=== PATIENT | female | born 1940 | race Caucasian/White ===

== ENCOUNTER 2020-03-06 09:40 | Observation (INO) | payer MEDICARE, OTHER ==
--- NOTE | 2020-03-06 10:14 | ER Document Report ---
ED Medical Screen (RME) - General Chief Complaint: Leg Swelling Stated Complaint: LEG SWELLING Time Seen by Provider: 03/06/20 10:07 Mode of Arrival: Ambulatory Information source: Patient Notes: 79-year-old female presented to ED for extreme swelling to both legs. With severe pain in the back and legs. 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 She states she does not have a emission specialist patient is not able to hear but can read lips daughter is with her and give give answers. Patient's doctor is in eating but she is living with her daughter at this time. I have greeted and performed a rapid initial assessment of this patient. A comprehensive ED assessment and evaluation of the patient, analysis of test results and completion of medical decision making process will be conducted by an additional ED providers. - Related Data Allergies/Adverse Reactions: codeine Allergy (Verified 03/06/20 10:12) levetiracetam [From Keppra] Allergy (Verified 03/06/20 10:12) phenytoin [From Dilantin] Allergy (Verified 03/06/20 10:12) shellfish derived Allergy (Verified 03/06/20 10:12) Physical Exam - Vital signs Vitals: Temp Pulse Resp BP Pulse Ox 98.5 F 112 H 18 126/63 H 99 03/06/20 10:03 03/06/20 10:03 03/06/20 10:03 03/06/20 10:03 03/06/20 10:03 Course - Vital Signs Vital signs: Temp Pulse Resp BP Pulse Ox 98.5 F 112 H 18 126/63 H 99 03/06/20 10:03 03/06/20 10:03 03/06/20 10:03 03/06/20 10:03 03/06/20 10:03
[2020-03-06 10:53] LABS: ABSOLUTE BASOPHILS # (AUTO) 0.1 10^3/uL (0.0-0.2); ABSOLUTE EOSINOPHILS # (AUTO) 0.2 10^3/uL (0.0-0.6); ABSOLUTE LYMPHOCYTES (AUTO) 1.7 10^3/uL (0.5-4.7); ABSOLUTE MONOCYTES (AUTO) 0.7 10^3/uL (0.1-1.4); ABSOLUTE NEUT (AUTO) 7.1 10^3/uL (1.7-8.2); EOSINOPHILS % (AUTO) 1.7 % (0-6); HEMATOCRIT 41.5 % (36.0-47.0); HEMOGLOBIN 14.5 g/dL (12.0-15.5); LYMPHOCYTES % (AUTO) 17.8 % (13-45); MEAN CORPUSCULAR HEMOGLOBIN 32.6 pg (27.0-33.4); MEAN CORPUSCULAR VOLUME 93 fl (80-97); MONOCYTES % (AUTO) 6.7 % (3-13); PLATELET COUNT 295 10^3/uL (150-450); RED BLOOD COUNT 4.45 10^6/uL (3.72-5.28); RED CELL DISTRIBUTION WIDTH 15.2 % (11.5-14.0); SEGMENTED NEUTROPHILS % (AUTO) 72.8 % (42-78); TOTAL CELLS COUNTED % (AUTO) 100 %; WHITE BLOOD COUNT 9.7 10^3/uL (4.0-10.5)
[2020-03-06 10:57] LABS: APPEARANCE,URINE SLIGHTLY-CLOUDY; BILIRUBIN,URINE NEGATIVE (NEGATIVE); COLOR,URINE YELLOW; GLUCOSE, URINE NEGATIVE (NEGATIVE); KETONES,URINE NEGATIVE (NEGATIVE); LEUKOCYTE ESTERASE,URINE SMALL (NEGATIVE); NITRITE,URINE NEGATIVE (NEGATIVE); PROTEIN,URINE NEGATIVE (NEGATIVE); URINE SPECIFIC GRAVITY 1.013; UROBILINOGEN,URINE NEGATIVE mg/dL (<2.0)
[2020-03-06 11:16] LABS: ALBUMIN 3.8 g/dL (3.5-5.0); ALKALINE PHOSPHATASE 111 U/L (38-126); ANION GAP 9 (5-19); ASPARTATE AMINO TRANSFERASE 23 U/L (14-36); BILIRUBIN,DIRECT 0.3 mg/dL (0.0-0.4); BILIRUBIN,TOTAL 0.6 mg/dL (0.2-1.3); BLOOD UREA NITROGEN 33 mg/dL (7-20); CALCIUM 9.4 mg/dL (8.4-10.2); CARBON DIOXIDE 32 mmol/L (22-30); CHLORIDE 97 mmol/L (98-107); CREATINE KINASE 27 U/L (30-135); GLUCOSE 94 mg/dL (75-110); TOTAL PROTEIN 6.3 g/dL (6.3-8.2)
--- NOTE | 2020-03-06 11:17 | RADIOLOGY REPORT (SQ) ---
EXAM DESCRIPTION: CHEST 2 VIEWS IMAGES COMPLETED DATE/TIME: 03/06/2020 10:54 am REASON FOR STUDY: pedal edema COMPARISON: None. EXAM PARAMETERS: NUMBER OF VIEWS: two views TECHNIQUE: Digital Frontal and Lateral radiographic views of the chest acquired. RADIATION DOSE: NA LIMITATIONS: none FINDINGS: LUNGS AND PLEURA: No opacities, masses or pneumothorax. No pleural effusion. MEDIASTINUM AND HILAR STRUCTURES: No masses or contour abnormalities. HEART AND VASCULAR STRUCTURES: Heart normal size. No evidence for failure. BONES: No acute findings. HARDWARE: No acute findings. Exaggerated thoracic kyphosis with evidence of prior kyphoplasty. More superior compression deformity, chronicity uncertain. OTHER: Ovoid calcific density overlies upper arm soft tissues, possibly calcified granuloma. IMPRESSION: No evidence of acute intrathoracic process. Evidence of prior thoracic kyphoplasty. More superior compression deformity, chronicity uncertain se condary to lack of priors. Recommend correlation with patient symptoms. TECHNICAL DOCUMENTATION: JOB ID: [id number] 2010 [employer]- All Rights Reserved Reading location - IP/workstation name: [email or web address]
[2020-03-06] MEDS ORDERED: LIDOCAINE 5% (700 MG) TRANSDERMAL ADH..PATCH TP ONE (12:51)
[2020-03-06] MEDS ORDERED: FUROSEMIDE INJ/PF 20 MG/2 ML SDV IV ONE (12:51)
[2020-03-06] MEDS ORDERED: ACETAMINOPHEN 325 MG TABLET PO ONE (12:51)
--- NOTE | 2020-03-06 12:57 | ER Document Report ---
ED Extremity Problem, Lower - General Chief Complaint: Leg Swelling Stated Complaint: LEG SWELLING Time Seen by Provider: 03/06/20 10:07 Mode of Arrival: Ambulatory Information source: Patient, Relative Notes: Patient presents with a two-week history of peripheral edema. Patient having shortness of breath early this morning for about 2 to 3 hours. Patient states that she does have a history of congestive heart failure as well as high blood pressure and dyslipidemia. Patient denies any chest pain symptoms. Patient denies any cough or cold symptoms. Patient does report chronic low back pain due to numerous compression fractures. Patient recently relocated to this area about 2 weeks ago to live with her daughter. Patient denies any previous history of having a heart catheterization or stress test in the past. Patient denies any palpitations. - HPI Patient complains to provider of: Swelling Location: Leg Occurred: Other - 2 weeks Quality of pain: No pain Pain Level: Denies Context: denies: Recent immobilization Recent injury: No Associated symptoms: Short of breath. denies: Dizzy Exacerbated by: Nothing Relieved by: Nothing - Related Data Allergies/Adverse Reactions: codeine Allergy (Verified 03/06/20 10:12) levetiracetam [From Keppra] Allergy (Verified 03/06/20 10:12) phenytoin [From Dilantin] Allergy (Verified 03/06/20 10:12) shellfish derived Allergy (Verified 03/06/20 10:12) Past Medical History - General Information source: Patient, Relative - Social History Smoking Status: Never Smoker Frequency of alcohol use: None Drug Abuse: None Lives with: Family Family History: Reviewed & Not Pertinent - Past Medical History Cardiac Medical History: Reports: Hx Congestive Heart Failure, Hx Hypercholester olemia, Hx Hypertension Musculoskeletal Medical History: Reports Hx Arthritis, Reports Other - Polymyalgia rheumatica Past Surgical History: Reports: Hx Section, Hx Hysterectomy, Hx Neurologic Surgery - Craniotomy, Hx Orthopedic Surgery - Kyphoplasty, Hx Tonsillectomy, Other - Esophageal stricture Review of Systems - Review of Systems Constitutional: No symptoms reported. denies: Fever EENT: No symptoms reported Cardiovascular: Dyspnea, Edema. denies: Chest pain, Palpitations, Syncope Respiratory: Short of breath. denies: Cough Gastrointestinal: No symptoms reported. denies: Abdominal pain, Nausea, Vomiting Genitourinary: No symptoms reported Female Genitourinary: No symptoms reported Musculoskeletal: Back pain, Leg swelling Skin: Change in color - Erythema bilateral lower extremities Hematologic/Lymphatic: No symptoms reported Neurological/Psychological: No symptoms reported Physical Exam - Vital signs Vitals: Temp Pulse Resp BP Pulse Ox 98.5 F 112 H 18 126/63 H 99 03/06/20 10:03 03/06/20 10:03 03/06/20 10:03 03/06/20 10:03 03/06/20 10:03 - General General appearance: Appears well, Alert In distress: None - HEENT Head: Normocephalic, Atraumatic Eyes: Normal Conjunctiva: Normal Nasal: Normal Mouth/Lips: Normal Neck: Normal, Supple. No: Lymphadenopathy - Respiratory Respiratory status: No respiratory distress Chest status: Nontender Breath sounds: Rales - faint to bases. No: Nonproductive cough Chest palpation: Normal - Cardiovascular Rhythm: Tachycardia Heart sounds: S1 appreciated, S2 appreciated Murmur: No - Abdominal Inspection: Morbidly Obese Distension: No distension Tenderness: Nontender - Back Back: Vertebra tenderness - Lower lumbar, sacral tenderness - Extremities General upper extremity: Normal inspection, Normal ROM General lower extremity: Edema - 3-4+ peripheral edema bilaterally, Normal ROM. No: Normal color - Erythema to bilateral lower extremities - Neurological Neuro grossly intact: Yes Cognition: Normal Fady Coma Scale Eye Opening: Spontaneous Fady Coma Scale Verbal: Oriented Fady Coma Scale Motor: Obeys Commands [place] Coma Scale Total: 15 - Psychological Associated symptoms: Normal affect, Normal mood - Skin Skin Temperature: Warm Skin Moisture: Dry Skin Color: Erythema - Bilateral lower extremities Course - Re-evaluation Re-evalutation: 03/06/20 12:45 Patient's daughter requests Andujar catheter be placed prior to patient being given diuretic due to her difficulties with mobility with her chronic back pain and peripheral edema. 03/06/20 15:10 Patient tachycardic, heart rate 110s to 120, patient's blood pressure currently 104/67. Patient denies any chest discomfort or shortness of breath at this time. Patient denies ever having any previous heart catheterization or stress testing. Patient complains of acid reflux symptoms stating that she taste some bile in the back of her throat. Patient states that she takes her omeprazole twice a day. Consulted with Dr. Aldridge notes regarding patient presentation and diagnostic evaluation. He recommends consultation with cardiology at this time. 03/06/20 15:[address] Barone regarding patient presentation and diagnostic evaluation. He does recommend adding on a TSH and consulting with hospitalist for admission. Consulted with Dr. Crane who does agree to accept patient to telemetry floor at this time. 03/06/20 18:40 - Vital Signs Vital signs: Temp Pulse Resp BP Pulse Ox 98.5 F 112 H 16 103/47 L 98 03/06/20 10:03 03/06/20 10:03 03/06/20 17:07 03/06/20 17:07 03/06/20 17:07 - Laboratory Result Diagrams: 03/06/20 10:32 03/06/20 10:32 Laboratory results interpreted by me: 03/06/20 03/06/20 03/06/20 10:32 10:32 10:32 RDW 15.2 H Chloride 97 L Carbon Dioxide 32 H BUN 33 H Creatinine 1.51 H Est GFR ( Amer) 40 L Est GFR (MDRD) Non-Af 33 L Creatine Kinase 27 L NT-Pro-B Natriuret Pep Ur Leukocyte Esterase SMALL H Urine Ascorbic Acid 40 H 03/06/20 10:32 RDW Chloride Carbon Dioxide BUN Creatinine Est GFR ( Amer) Est GFR (MDRD) Non-Af Creatine Kinase NT-Pro-B Natriuret Pep 681 H Ur Leukocyte Esterase Urine Ascorbic Acid 03/06/20 15:36 Labs- All tests 24 hr 03/06/20 03/06/20 03/06/20 10:32 10:32 10:32 WBC 9.7 RBC 4.45 Hgb 14.5 Hct 41.5 MCV 93 MCH 32.6 MCHC 35.0 RDW 15.2 H Plt Count 295 Lymph % (Auto) 17.8 [place] % (Auto) 6.7 Eos % (Auto) 1.7 Baso % (Auto) 1.0 Absolute Neuts (auto) 7.1 Absolute Lymphs (auto) 1.7 Absolute Monos (auto) 0.7 Absolute Eos (auto) 0.2 Absolute Basos (auto) 0.1 Seg Neutrophils % 72.8 Sodium 138.3 Potassium 4.0 Chloride 97 L Carbon Dioxide 32 H Anion Gap 9 BUN 33 H Creatinine 1.51 H Est GFR ( Amer) 40 L Est GFR (MDRD) Non-Af 33 L Glucose 94 Calcium 9.4 Total Bilirubin 0.6 Direct Bilirubin 0.3 Neonat Total Bilirubin Not Reportable Neonat Direct Bilirubin Not Reportable Neonat Indirect Bili Not Reportable AST 23 ALT 11 Alkaline Phosphatase 111 Creatine Kinase 27 L Troponin I < 0.012 NT-Pro-B Natriuret Pep Total Protein 6.3 Albumin 3.8 Urine Color Urine Appearance Urine pH Ur Specific [place] Urine Protein Urine Glucose (UA) Urine Ketones Urine Blood Urine Nitrite Urine Bilirubin Urine Urobilinogen Ur Leukocyte Esterase Urine WBC (Auto) Urine RBC (Auto) Urine Bacteria (Auto) Squamous Epi Cells Auto Urine Mucus (Auto) Urine Ascorbic Acid 03/06/20 03/06/20 03/06/20 10:32 10:32 14:05 WBC RBC Hgb Hct MCV MCH MCHC RDW Plt Count Lymph % (Auto) [place] % (Auto) Eos % (Auto) Baso % (Auto) Absolute Neuts (auto) Absolute Lymphs (auto) Absolute Monos (auto) Absolute Eos (auto) Absolute Basos (auto) Seg Neutrophils % Sodium Potassium Chloride Carbon Dioxide Anion Gap BUN Creatinine Est GFR ( Amer) Est GFR (MDRD) Non-Af Glucose Calcium Total Bilirubin Direct Bilirubin Neonat Total Bilirubin Neonat Direct Bilirubin Neonat Indirect Bili AST ALT Alkaline Phosphatase Creatine Kinase Troponin I < 0.012 NT-Pro-B Natriuret Pep 681 H Total Protein Albumin Urine Color YELLOW Urine Appearance SLIGHTLY-CLOUDY Urine pH 6.0 Ur Specific [place] 1.013 Urine Protein NEGATIVE Urine Glucose (UA) NEGATIVE Urine Ketones NEGATIVE Urine Blood NEGATIVE Urine Nitrite NEGATIVE Urine Bilirubin NEGATIVE Urine Urobilinogen NEGATIVE Ur Leukocyte Esterase SMALL H Urine WBC (Auto) 12 Urine RBC (Auto) 4 Urine Bacteria (Auto) TRACE Squamous Epi Cells Auto 10 Urine Mucus (Auto) RARE Urine Ascorbic Acid 40 H - Diagnostic Test Radiology reviewed: Image reviewed, Reports reviewed - EKG Interpretation by Me EKG shows normal: Sinus rhythm Rate: Tachycardia Rhythm: NSR When compared to previous EKG there are: Previous EKG unavailable Additional EKG results interpreted by me: 03/06/20 15:42 Sinus tachycardia with a rate of 108, QTc 424, no acute ischemic changes Discharge - Discharge Clinical Impression: Tachycardia, Peripheral edema Dyspnea Qualifiers: Dyspnea type: unspecified Qualified Code(s): R06.00 - Dyspnea, unspecified Condition: Fair Disposition: ADMITTED INPATIENT Admitting Provider: Royce (Hospitalist) Unit Admitted: Telemetry
[2020-03-06] MEDS ORDERED: METOPROLOL TARTRATE 25 MG TABLET PO ONE (14:52)
[2020-03-06] MEDS ORDERED: PREDNISONE 5 MG TABLET PO ONE (14:53)
[2020-03-06] MEDS ORDERED: MAG HYDROX/AL HYDROX/SIMETH SUSP 30 ML UDCUP PO ONE (15:08)
[2020-03-06] MEDS ORDERED: LIDOCAINE 2% VISCOUS SOLN 15 ML UDCUP PO ONE (15:08)
[2020-03-06] MEDS ORDERED: PANTOPRAZOLE SODIUM 40 MG TABLET.DR PO ONE (15:09)
[2020-03-06] MEDS ORDERED: ACETAMINOPHEN 650 MG SUPP.RECT PR PRN (18:07)
--- NOTE | 2020-03-06 18:56 | PDOC H&P ---
History of Present Illness Admission Date/PCP: 03/06/20 16:10 Patient complains of: Lower extremity swelling, intermittent SOB History of Present Illness: JAIR JUNIOR is a 79 year old female with PMHx of CHF, HTN, GERD, osteoperosis, and chronic back pain who presented to the ED today with concerns regarding 5 week history of gradually increasing lower extremity swelling with associated redness, pain, numbness and tingling. She also notes intermitted SOB this morning, which has since resolved. Otherwise denies chest pain, palpitations, or cough. She does experience orthopnea and typically sleeps sitting up in a chair; this is unchanged from her baseline. Pain today is described as an ache and is rate 3/5 today. Patient's daughter is present on evaluation at reports attempt at wrapping legs to decrease swelling with no improvement. Patient admits to no n-compliance with Torsemide as it increases her trips to the bathroom, thus aggravating her back pain. Her CHF is managed by her PCP who is in [facility] where she is lives, she is currently visiting her daughter. She is not followed by a animal care service worker, denies known history of Echo. She is scheduled for an spinal injection with pain management on 03/10/2020 and thus has not been taking her daily baby ASA. Evaluation in the ED significant for tachycardia in the 120s and blood pressure low 100/60s. On physical exam she is found to have peripheral edema and bibasilar rales. CBC unremarkable. Chemistries suggestive of [id number] kidney injury (Bun 33, Creatinine 1.51, eGFR 33). Pro-BNP is elevated (681). Trending troponins unremarkable. TSH within normal limits. On UA there is a small amount of leukocyte esterase and elevated urine ascorbic acid. CXR with no evidence of acute intrathoracic process. EKG showed sinus tachycardia rate of 109 with evidence of LVH. Cardiology was consulted. She was treated with a single dose of lasix and was admitted to the hospitalist service for further evaluation and treatment. Past Medical History Cardiac Medical History: Reports: Congestive Heart Failure, Hyperlipidema, Hypertension Denies: Atrial Fibrillation Pulmonary Medical History: Denies: Chronic Obstructive Pulmonary Disease (COPD) Neurological Medical History: Denies: Hemorrhagic CVA, Ischemic CVA Endocrine Medical History: Denies: Diabetes Mellitus Type 2, Hyperthyroidism, Hypothyroidism Renal/ Medical History: Denies: Chronic Kidney Disease GI Medical History: Reports: Gastroesophageal Reflux Disease Musculoskeltal Medical History: Reports: Arthritis, Other - Polymyalgia rheum atica. Osteoperosis. Chronic back pain. Skin Medical History: Denies: Eczema Past Surgical History Past Surgical History: Reports: Section, Hysterectomy, Orthopedic Surgery - Kyphoplasty, Tonsillectomy, Other - Esophageal stricture Social History Information Source: Patient Lives with: Alone Smoking Status: Never Smoker Electronic Cigarette use?: No Frequency of Alcohol Use: Rare Hx Recreational Drug Use: No Hx Prescription Drug Abuse: No - Advance Directive Resuscitation Status: Full Code Family History Family History: Hypertension. denies: Thyroid Disfunction Parental Family History Reviewed: Yes Children Family History Reviewed: Yes Sibling(s) Family History Reviewed.: Yes Medication/Allergy Home Medications: Ascorbic Acid [Vitamin C 500 mg Tablet] 500 mg PO DAILY 03/06/20 Aspirin [Ecotrin 81 mg EC Tablet] 81 mg PO DAILY 03/06/20 Atorvastatin Calcium [Lipitor 40 mg Tablet] 40 mg PO QHS 03/06/20 Calcium Carbonate [Calcium] 1,500 mg PO DAILY 03/06/20 Cholecalciferol (Vitamin D3) [Vitamin D3 1000 Unit Tablet] 1,000 unit PO DAILY 03/06/20 Cinnamon Bark/Chromium Picolin [Cinnamon Plus Chromium Capsule] 1 cap PO DAILY 03/06/20 Cyanocobalamin (Vitamin B-12) [Vitamin B-12 1000 Mcg Tablet] 1 tab PO DAILY 03/06/20 Fluticasone Propionate [Flonase Nasal Alden 50 Mcg/Alden 16 gm] 2 sprays NASL DAILY 03/06/20 Garlic 1,000 mg PO DAILY 03/06/20 Cathy 1,000 mg PO DAILY 03/06/20 Lisinopril [Zestril] 40 mg PO DAILY 03/06/20 Loratadine [Claritin 10 mg Tablet] 10 mg PO DAILY 03/06/20 Metoprolol Succinate [Toprol Xl 25 mg Tab.sr] 25 mg PO DAILY 03/06/20 Omeprazole 40 mg PO BID 03/06/20 Prednisone [Deltasone 5 mg Tablet] 5 mg PO DAILY 03/06/20 Torsemide [Demadex 20 mg Tablet] 20 mg PO DAILY 03/06/20 Tramadol HCl [Ultram 50 mg Tablet] 100 mg PO DAILY 10/05/20 Allergies/Adverse Reactions: codeine Allergy (Verified 03/06/20 10:12) levetiracetam [From Keppra] Allergy (Verified 03/06/20 10:12) phenytoin [From Dilantin] Allergy (Verified 03/06/20 10:12) shellfish derived Allergy (Verified 03/06/20 10:12) Review of Systems Constitutional: ABSENT: chills, fever(s), headache(s), weight gain Eyes: ABSENT: visual disturbances Nose, Mouth, and Throat: ABSENT: headache(s), vertigo Cardiovascular: PRESENT: edema, orthropnea. ABSENT: chest pain, dyspnea on exertion, palpitations Respiratory: PRESENT: dyspnea. ABSENT: cough, hemoptysis Gastrointestinal: ABSENT: abdominal pain, diarrhea, nausea, vomiting Genitourinary: ABSENT: difficulty urinating, dysuria, hematuria Musculoskeletal: PRESENT: back pain - Chronic. ABSENT: muscle weakness Integumentary: ABSENT: diaphoresis, pruritus, rash Neurological: PRESENT: paresthesias, tingling. ABSENT: abnormal movements, syncope, tremor(s), vertigo, weakness Psychiatric: ABSENT: anxiety, depression Endocrine: ABSENT: cold intolerance, heat intolerance, polydipsia, polyphagia, polyuria Hematologic/Lymphatic: ABSENT: easy bleeding, lymphadenopathy Physical Exam Vital Signs: Temp Pulse Resp BP Pulse Ox 98.5 F 112 H 16 103/47 L 98 03/06/20 10:03 03/06/20 10:03 03/06/20 17:07 03/06/20 17:07 03/06/20 17:07 Intake & Output 03/05/20 03/06/20 03/07/20 06:59 06:59 06:59 Weight 71.3 kg General appearance: PRESENT: no acute distress, cooperative, hard of hearing, obese Head exam: PRESENT: atraumatic, normocephalic Eye exam: PRESENT: conjunctiva pink, EOMI, PERRLA. ABSENT: scleral icterus Ear exam: PRESENT: normal external ear exam. ABSENT: bleeding, drainage Mouth exam: PRESENT: moist, tongue midline Neck exam: PRESENT: full ROM. ABSENT: JVD, lymphadenopathy, tenderness Respiratory exam: PRESENT: rales - Bibasilar, symmetrical, unlabored. ABSENT: tachypnea Cardiovascular exam: PRESENT: +S1, +S2, tachycardia. ABSENT: diastolic murmur, systolic murmur GI/Abdominal exam: PRESENT: normal bowel sounds, soft, other - Umbical hernia. ABSENT: tenderness Rectal exam: PRESENT: deferred Gentrourinary exam: PRESENT: indwelling catheter Extremities exam: PRESENT: full ROM, tenderness, other - 3+ Edema bilaterally. Associated redness and warmth, extending up into thighs. Musculoskeletal exam: PRESENT: full ROM. ABSENT: dislocation Neurological exam: PRESENT: alert, awake, oriented to person, oriented to place, oriented to time, oriented to situation, CN II-XII grossly intact. ABSENT: altered, motor sensory deficit Psychiatric exam: PRESENT: appropriate affect, normal mood Skin exam: PRESENT: dry, intact, warm. ABSENT: rash Results Laboratory Results: 03/06/20 10:32 03/06/20 10:32 03/06/20 03/06/20 03/06/20 10:32 10:32 10:32 WBC 9.7 RBC 4.45 Hgb 14.5 Hct 41.5 MCV 93 MCH 32.6 MCHC 35.0 RDW 15.2 H Plt Count 295 Seg Neutrophils % 72.8 Sodium 138.3 Potassium 4.0 Chloride 97 L Carbon Dioxide 32 H Anion Gap 9 BUN 33 H Creatinine 1.51 H Est GFR ( Amer) 40 L Glucose 94 Calcium 9.4 Total Bilirubin 0.6 AST 23 Alkaline Phosphatase 111 Total Protein 6.3 Albumin 3.8 TSH Urine Color YELLOW Urine Appearance SLIGHTLY-CLOUDY Urine pH 6.0 Ur Specific [place] 1.013 Urine Protein NEGATIVE Urine Glucose (UA) NEGATIVE Urine Ketones NEGATIVE Urine Blood NEGATIVE Urine Nitrite NEGATIVE Ur Leukocyte Esterase SMALL H Urine WBC (Auto) 12 Urine RBC (Auto) 4 03/06/20 10:32 WBC RBC Hgb Hct MCV MCH MCHC RDW Plt Count Seg Neutrophils % Sodium Potassium Chloride Carbon Dioxide Anion Gap BUN Creatinine Est GFR ( Amer) Glucose Calcium Total Bilirubin AST Alkaline Phosphatase Total Protein Albumin TSH 3.83 Urine Color Urine Appearance Urine pH Ur Specific [place] Urine Protein Urine Glucose (UA) Urine Ketones Urine Blood Urine Nitrite Ur Leukocyte Esterase Urine WBC (Auto) Urine RBC (Auto) 03/06/20 03/06/20 03/06/20 10:32 10:32 10:32 Creatine Kinase 27 L Troponin I < 0.012 NT-Pro-B Natriuret Pep 681 H 03/06/20 14:05 Creatine Kinase Troponin I < 0.012 NT-Pro-B Natriuret Pep Impressions: Chest X-Ray 03/06/20 10:12 IMPRESSION: No evidence of acute intrathoracic process. Evidence of prior thoracic kyphoplasty. More superior compression deformity, chronicity uncertain secondary to lack of priors. Recommend correlation with patient symptoms. Assessment and Plan - Diagnosis (1) CHF exacerbation Qualifiers: Heart failure type: diastolic Qualified Code(s): I50.33 - Acute on chronic diastolic (congestive) heart failure Is this a current diagnosis for this admission?: Yes Plan: - Pro-BNP elevated 681. - Patient admittedly non-compliant with home medication of Torsemide. - Lasix 20mg BID. - Monitor I&Os and daily weights - Cardiology was consulted in the ED - Cardiac diet in place - Dietitian for patient education on cardiac diet - She is not followed by animal care service worker at home, recommend f/u with animal care service worker with outpatient Echo. (2) Dyspnea Qualifiers: Dyspnea type: shortness of breath Qualified Code(s): R06.02 - Shortness of breath; R06.00 - Dyspnea, unspecified; R06.01 - Orthopnea Is this a current diagnosis for this admission?: Yes Plan: - 02sat 98 on room air. - Has since resolved with Lasix. - Continue to monitor - Treatment otherwise as discussed above (3) Peripheral edema Is this a current diagnosis for this admission?: Yes Plan: - 3+ bilateral pitting edema - Suspect secodnary to non-compliance with diuretic. - Lasix 20mg BID (4) Tachycardia Is this a current diagnosis for this admission?: Yes Plan: - HR up to 120 in ED. HR of 96 upon exam. - Initiate Metoprolol 25mg - Suspect will improve with lasix - Continue to monitor on telemetry (5) Qwgif-ui-hywnihc kidney injury Qualifiers: Acute renal failure type: unspecified Chronic kidney disease stage: stage 3 (moderate) Chronic kidney disease stage 3 subtype: stage 3b (GFR 30-44) Qualified Code(s): N17.9 - Acute kidney failure, unspecified; N18.32 - Chronic kidney disease, stage 3b Is this a current diagnosis for this admission?: Yes Plan: - BUN 33, Cr 1.51, eGFR 33 - Monitor BMP daily - Expect improvement with diuretic - Not followed by bomb squad officer (6) Chronic back pain Qualifiers: Back pain location: thoracic back pain Back pain laterality: midline Qualified Code(s): M54.6 - Pain in thoracic spine; G89.29 - Other chronic pain Is this a current diagnosis for this admission?: Yes Plan: - History of chronic back pain secondary to impingement of L4-L5 - Followed by pain management, scheduled for injection 03/10/20 - Treated with Tramadol and Tylenol - Will treat inpatient with kpad, Tylenol q4 hours, lidoacine patch and Tramadol as needed for pain >3/5. (7) GERD (gastroesophageal reflux disease) Qualifiers: Esophagitis presence: esophagitis presence not specified Qualified Code(s): K21.9 - Gastro-esophageal reflux disease without esophagitis Is this a current diagnosis for this admission?: Yes Plan: - Long standing treatment with Omeprazole daily - Resume treatment regimen at this time (8) Hypertension Qualifiers: Hypertension type: essential hypertension Qualified Code(s): I10 - Essential (primary) hypertension Is this a current diagnosis for this admission?: Yes Plan: - BP currently low 100/60s. - Home regimine includes Lisinopril, will hold at this time. - Continue to monitor q4 hours. (9) HLD (hyperlipidemia) Qualifiers: Hyperlipidemia type: unspecified Qualified Code(s): E78.5 - Hyperlipidemia, unspecified Is this a current diagnosis for this admission?: Yes Plan: - Resume home treatment regimen at this time. (10) Obesity (BMI 30-39.9) Is this a current diagnosis for this admission?: Yes Plan: - BMI 35.2 - Discussed dietary and lifestyle changes - Dietitian consulted - Time Time Spent with patient: 35 or more minutes Medications reviewed and adjusted accordingly: Yes Anticipated Discharge Disposition: Home with Home Health Anticipated Discharge Timeframe: within 48 hours - Inpatient Certification Based on my medical assessment, after consideration of the patient's comorbidities, presenting symptoms, or acuity I expect that the services needed warrant INPATIENT care.: Yes I certify that my determination is in accordance with my understanding of Medicare's requirements for reasonable and necessary INPATIENT services [42 CFR 412.3e].: Yes Medical Necessity: Failure to Improve With Outpatient Therapy, Significant Co morbidiites Make Outpatient Treatment Too Risky, Need Close Monitoring Due to Risk of Patient Decompensation, Need For Continuous Telemetry Monitoring, Risk of Complication if Not Cared For in Hospital, Risk of Diagnosis Which Will Require Inpatient Eval/Care/Monitoring Post Hospital Care: D/C or Transfer Summary
[2020-03-06] MEDS: FUROSEMIDE 20 MG TABLET PO SCH (21:20)
--- NOTE | 2020-03-06 21:51 | EKG REPORT ---
SEVERITY:- ABNORMAL ECG - SINUS RHYTHM LVH WITH SECONDARY REPOLARIZATION ABNORMALITY : Confirmed by: Lis Berrios MD 06-Mar-2020 21:51:38
[2020-03-06] MEDS ORDERED: METOPROLOL TARTRATE 25 MG TABLET PO SCH (22:00)
[2020-03-06] MEDS: HEPARIN SOD (PORCINE) 5,000 UNIT/ML 1 ML VIAL SUBCUT SCH (23:54)
[2020-03-07] MEDS: PANTOPRAZOLE SODIUM 40 MG TABLET.DR PO SCH (06:02)
[2020-03-07] MEDS: HEPARIN SOD (PORCINE) 5,000 UNIT/ML 1 ML VIAL SUBCUT SCH ×3 (06:02→21:22)
[2020-03-07 06:43] LABS: ABSOLUTE EOSINOPHILS # (AUTO) 0.1 10^3/uL (0.0-0.6); ABSOLUTE LYMPHOCYTES (AUTO) 1.5 10^3/uL (0.5-4.7); ABSOLUTE MONOCYTES (AUTO) 0.5 10^3/uL (0.1-1.4); ABSOLUTE NEUT (AUTO) 5.7 10^3/uL (1.7-8.2); BASOPHILS % (AUTO) 0.6 % (0-2); EOSINOPHILS % (AUTO) 1.6 % (0-6); HEMATOCRIT 34.3 % (36.0-47.0); MEAN CORPUSCULAR HEMOGLOBIN 32.4 pg (27.0-33.4); MEAN CORPUSCULAR VOLUME 93 fl (80-97); MONOCYTES % (AUTO) 6.3 % (3-13); PLATELET COUNT 240 10^3/uL (150-450); RED CELL DISTRIBUTION WIDTH 14.5 % (11.5-14.0); SEGMENTED NEUTROPHILS % (AUTO) 72.5 % (42-78); TOTAL CELLS COUNTED % (AUTO) 100 %; WHITE BLOOD COUNT 7.8 10^3/uL (4.0-10.5)
[2020-03-07 06:52] LABS: BLOOD UREA NITROGEN 25 mg/dL (7-20); CALCIUM 8.5 mg/dL (8.4-10.2); GLUCOSE 99 mg/dL (75-110); POTASSIUM 3.8 mmol/L (3.6-5.0)
[2020-03-07 06:57] LABS: CARBON DIOXIDE 34 mmol/L (22-30); CHLORIDE 101 mmol/L (98-107)
[2020-03-07 07:05] LABS: ANION GAP 3 (5-19)
--- NOTE | 2020-03-07 07:27 | XCELERA REPORT ---
[address] [address] Transthoracic Echocardiogram Report Name: JAIR JUNIOR Age: 79 yrs Gender: Female : 1940 Patient Status: Inpatient Patient Location: [address] [place] [address] Study Date: 03/06/2020 07:59 PM Height: 56 in Weight: 157 lb BSA: 1.6 m2 Procedure: A complete two-dimensional transthoracic echocardiogram was performed (2D, M-mode, spectral and color flow Doppler). The study was technically limited with all images being suboptimal in quality. The apical views were difficult to obtain and are suboptimal in quality. The subcostal views were difficult to obtain and are suboptimal in quality. Reason For Study: acute on chronic CHF Ordering Physician: NORMAN CAMPUZANO Performed By: Nasima Wesley Interpretation Summary The left ventricle is grossly normal size. Left ventricular systolic function is normal. The Ejection Fraction estimate is 65-70%. Doppler measurements suggest impaired left ventricular relaxation, which is associated with grade I/IV or mild diastolic dysfunction. Mild hypokinesis of the apex. Trace to mild MR, trace to mild TR, trace PI. No prior studies for comparison. MMode/2D Measurements & Calculations RVDd: 1.8 cm LVIDd: 3.4 cm FS: 38.0 % Ao root diam: 2.6 cm IVSd: 1.2 cm LVIDs: 2.1 cm EDV(Teich): 46.6 ml Ao root area: 5.3 cm2 LVPWd: 1.1 cm ESV(Teich): 14.3 ml LA dimension: 2.9 cm EF(Teich): 69.4 % Doppler Measurements & Calculations MV E max jeri: MV P1/2t max jeri: Ao V2 max: LV V1 max P.5 cm/sec 82.5 cm/sec 169.9 cm/sec 7.4 mmHg MV A max jeri: MV P1/2t: 88.7 msec Ao max PG: LV V1 max: 110.0 cm/sec MVA(P1/2t): 2.5 cm2 11.6 mmHg 135.7 cm/sec MV E/A: 0.68 MV dec slope: 272.5 cm/sec2 MV dec time: 0.31 sec PA V2 max: PI end-d jeri: MV P1/2t-pr_phl: 132.2 cm/sec 150.5 cm/sec 88.7 msec PA max P.0 mmHg Left Ventricle The left ventricle is grossly normal size. Left ventricular systolic function is normal. The Ejection Fraction estimate is 65-70%. Doppler measurements suggest impaired left ventricular relaxation, which is associated with grade I/IV or mild diastolic dysfunction. Mild hypokinesis of the apex. Right Ventricle The right ventricle is normal size. The right ventricular systolic function is normal. Atria The right atrium is normal. The left atrial size is normal. The interatrial septum is difficult to see, but appears to be grossly normal. Mitral Valve There is mild mitral leaflet calcification. There is no evidence of mitral valve prolapse. There is no mitral valve stenosis. There is a trace to mild amount of mitral regurgitation. Aortic Valve The aortic valve is mildly calcified. There is no aortic valvular vegetation. There is no aortic valve stenosis. No aortic regurgitation is present. Tricuspid Valve The tricuspid valve is not well visualized, but is grossly normal. There is no tricuspid valve prolapse. There is no tricuspid stenosis. There is a trace to mild amount of tricuspid regurgitation. Pulmonic Valve The pulmonic valve is not well seen, but is grossly normal. There is no vegetation on the pulmonic valve. There is no pulmonic valvular stenosis. There is a trace amount of pulmonic regurgitation. Effusions There is no pericardial effusion. There is no pleural effusion. : NORMAN CAMPUZANO, Raffi
[2020-03-07] MEDS ORDERED: INFLUENZA QUAD (6MOS+) 2020-21 VAC 0.5 ML SYR IM ONE (08:00)
[2020-03-07] MEDS ORDERED: POTASSIUM CHLORIDE 10 MEQ TABLET.ER PO SCH (10:00)
[2020-03-07] MEDS ORDERED: AMIODARONE HCL 150 MG in DEXTROSE 5%-WATER 100 ML IV ONE (10:00)
[2020-03-07] MEDS ORDERED: DEXTROSE 5%-WATER 500 ML with AMIODARONE HCL 900 MG IV PRN ×2 (10:30)
[2020-03-07] MEDS ORDERED: GLUCAGON,HUMAN RECOMB 1 MG INJ SUBCUT PRN (10:50)
[2020-03-07] MEDS ORDERED: DEXTROSE 40% GEL 15 GM TUBE PO PRN ×2 (10:50)
[2020-03-07] MEDS ORDERED: DEXTROSE 50%-WATER 25 GM/50 ML DISP.SYRIN IV PRN ×2 (10:50)
[2020-03-07] MEDS: FUROSEMIDE 20 MG TABLET PO SCH (10:58)
[2020-03-07] MEDS: METOPROLOL TARTRATE 50 MG TABLET PO SCH ×2 (10:58→23:26)
[2020-03-07] MEDS: PREDNISONE 5 MG TABLET PO SCH (10:59)
[2020-03-07] MEDS: POLYETHYLENE GLYCOL 3350 POWDER 17 GM/1 PACKET PO SCH (10:59)
[2020-03-07] MEDS ORDERED: MAGNESIUM SULFATE 4 GM/100 ML RTUPB IV ONE (11:00)
[2020-03-07] MEDS ORDERED: CARBOXYMETHYLCELLULOSE SOD 0.5% 0.4 ML DROPERETTE OU PRN (11:46)
[2020-03-07] MEDS: MAGNESIUM OXIDE 400 MG TABLET PO SCH (11:51)
--- NOTE | 2020-03-07 12:26 | PDOC CONSULTATION ---
Consultation Consult Date: 03/07/20 Attending physician:: NORMAN CAMPUZANO Provider Consulted: VIJAY PALACIOS Consult reason:: Tachycardia, HF History of Present Illness Admission Date/PCP: 03/06/20 16:10 History of Present Illness: JAIR JUNIOR is a 79 year old female with PMHx of CHF, HTN, GERD, osteoperosis, and chronic back pain who presented to the ED today with concerns regarding 5 week history of gradually increasing lower extremity swelling with associated redness, pain, numbness and tingling. She also notes intermitted SOB this morning, which has since resolved. In the ED significant she was found to be tachycardic in the 120s and blood pressure low 100/60s but since admission this has resolved. She also was noted to have EZE which has also resolved. She was given 1 dose of Lasix in the ER and her fluid balance as of earlier today was - 525 cc. This morning she is asymptomatic however yesterday had an episode of chest pressure associated with nausea and dizziness at which point she states that the nurses came into the room and told her that her heart rate was really fast. The rhythm strips at that time are of poor quality and I am not completel y sure that this is artifact versus VT versus torsades. She has no symptoms at the time of my evaluation. Her echocardiogram yesterday demonstrated an essentially normal ejection fraction however the apex was mildly hypokinetic. Physical exam on 03/07/2020: GENERAL: Pleasant and conversational. Oriented x3 with normal mood. Not in acute distress. Well groomed and well developed. HEENT: Normocephalic, atraumatic. Pupils equal. Sclerae anicteric. Oropharynx moist. NECK: No JVD. No carotid bruits. LUNGS: Clear to auscultation bilaterally. Normal respiratory effort without the use of accessory muscles or intercostal retractions. CARDIOVASCULAR: Regular rate and rhythm, normal S1 and S2 without murmurs, rubs, or gallops. PMI not displaced. ABDOMEN: No masses or tenderness to palpation. No bruit. No splenomegaly or hepatomegaly. No abdominal aorta bruit noted. EXTREMITIES: Trace pitting edema bilaterally, no cyanosis, no clubbing. +2 pulses femoral and pedal pulses bilaterally. Erythema bilaterally consistent with venous stasis. SKIN: No lesions or rashes. MUSCULOSKELETAL: No chest tenderness to palpation. NEUROLOGIC: Nonfocal. No gross sensory or motor deficits bilateral upper or lower extremities. Past Medical History Cardiac Medical History: Reports: Congestive Heart Failure, Hyperlipidema, Hypertension Denies: Atrial Fibrillation Pulmonary Medical History: Denies: Chronic Obstructive Pulmonary Disease (COPD) Neurological Medical History: Denies: Hemorrhagic CVA, Ischemic CVA Endocrine Medical History: Denies: Diabetes Mellitus Type 2, Hyperthyroidism, Hypothyroidism Renal/ Medical History: Denies: Chronic Kidney Disease GI Medical History: Reports: Gastroesophageal Reflux Disease Musculoskeltal Medical History: Reports: Arthritis, Other - Polymyalgia rheumatica. Osteoperosis. Chronic back pain. Skin Medical History: Denies: Eczema Psychiatric Medical History: Denies: Depression Past Surgical History Past Surgical History: Reports: Section, Hysterectomy, Orthopedic Surgery - Kyphoplasty, Tonsillectomy, Other - Esophageal stricture Social History Lives with: Alone Smoking Status: Never Smoker Electronic Cigarette use?: No Frequency of Alcohol Use: Rare Hx Recreational Drug Use: No Hx Prescription Drug Abuse: No - Advance Directive Resuscitation Status: Do Not Resuscitate Family History Family History: Hypertension. denies: Thyroid Disfunction Parental Family History Reviewed: Yes Children Family History Reviewed: Yes Sibling(s) Family History Reviewed.: Yes Medication/Allergy Home Medications: Ascorbic Acid [Vitamin C 500 mg Tablet] 500 mg PO DAILY 03/06/20 Aspirin [Ecotrin 81 mg EC Tablet] 81 mg PO DAILY 03/06/20 Atorvastatin Calcium [Lipitor 40 mg Tablet] 40 mg PO QHS 03/06/20 Calcium Carbonate [Calcium] 1,500 mg PO DAILY 03/06/20 Cholecalciferol (Vitamin D3) [Vitamin D3 1000 Unit Tablet] 1,000 unit PO DAILY 03/06/20 Cinnamon Bark/Chromium Picolin [Cinnamon Plus Chromium Capsule] 1 cap PO DAILY 03/06/20 Cyanocobalamin (Vitamin B-12) [Vitamin B-12 1000 Mcg Tablet] 1 tab PO DAILY 03/06/20 Fluticasone Propionate [Flonase Nasal [place] 50 Mcg/[place] 16 gm] 2 sprays NASL DAILY 03/06/20 Garlic 1,000 mg PO DAILY 03/06/20 Cathy 1,000 mg PO DAILY 03/06/20 Lisinopril [Zestril] 40 mg PO DAILY 03/06/20 Loratadine [Claritin 10 mg Tablet] 10 mg PO DAILY 03/06/20 Metoprolol Succinate [Toprol Xl 25 mg Tab.sr] 25 mg PO DAILY 03/06/20 Omeprazole 40 mg PO BID 03/06/20 Prednisone [Deltasone 5 mg Tablet] 5 mg PO DAILY 03/06/20 Torsemide [Demadex 20 mg Tablet] 20 mg PO DAILY 03/06/20 Tramadol HCl [Ultram 50 mg Tablet] 100 mg PO DAILY 03/06/20 Allergies/Adverse Reactions: codeine Allergy (Verified 03/06/20 10:12) levetiracetam [From Keppra] Allergy (Verified 03/06/20 10:12) phenytoin [From Dilantin] Allergy (Verified 03/06/20 10:12) shellfish derived Allergy (Verified 03/06/20 10:12) Physical Exam Vital Signs: Temp Pulse Resp BP Pulse Ox 98.2 F 96 18 117/62 96 03/06/20 23:40 03/07/20 02:00 03/06/20 23:40 03/06/20 23:40 03/06/20 23:40 Intake & Output 03/06/20 03/07/20 03/08/20 06:59 06:59 06:59 Intake Total 900 Output Total 1425 Balance -525 Weight 71.3 kg Results Laboratory Results: 03/07/20 06:21 03/07/20 06:21 03/06/20 03/06/20 03/06/20 10:32 10:32 10:32 WBC 9.7 RBC 4.45 Hgb 14.5 Hct 41.5 MCV 93 MCH 32.6 MCHC 35.0 RDW 15.2 H Plt Count 295 Seg Neutrophils % 72.8 Sodium 138.3 Potassium 4.0 Chloride 97 L Carbon Dioxide 32 H Anion Gap 9 BUN 33 H Creatinine 1.51 H Est GFR ( Amer) 40 L Glucose 94 Calcium 9.4 Magnesium Total Bilirubin 0.6 AST 23 Alkaline Phosphatase 111 Total Protein 6.3 Albumin 3.8 TSH Urine Color YELLOW Urine Appearance SLIGHTLY-CLOUDY Urine pH 6.0 Ur Specific [place] 1.013 Urine Protein NEGATIVE Urine Glucose (UA) NEGATIVE Urine Ketones NEGATIVE Urine Blood NEGATIVE Urine Nitrite NEGATIVE Ur Leukocyte Esterase SMALL H Urine WBC (Auto) 12 Urine RBC (Auto) 4 03/06/20 03/07/20 03/07/20 10:32 06:21 06:21 WBC 7.8 RBC 3.70 L Hgb 12.0 D Hct 34.3 L MCV 93 MCH 32.4 MCHC 35.0 RDW 14.5 H Plt Count 240 Seg Neutrophils % 72.5 Sodium 138.4 Potassium 3.8 Chloride 101 Carbon Dioxide 34 H Anion Gap 3 L BUN 25 H Creatinine 1.16 Est GFR ( Amer) 54 L Glucose 99 Calcium 8.5 Magnesium 2.0 Total Bilirubin AST Alkaline Phosphatase Total Protein Albumin TSH 3.83 Urine Color Urine Appearance Urine pH Ur Specific [place] Urine Protein Urine Glucose (UA) Urine Ketones Urine Blood Urine Nitrite Ur Leukocyte Esterase Urine WBC (Auto) Urine RBC (Auto) 03/06/20 03/06/20 03/06/20 10:32 10:32 10:32 Creatine Kinase 27 L Troponin I < 0.012 NT-Pro-B Natriuret Pep 681 H 03/06/20 14:05 Creatine Kinase Troponin I < 0.012 NT-Pro-B Natriuret Pep Impressions: Chest X-Ray 03/06/20 10:12 IMPRESSION: No evidence of acute intrathoracic process. Evidence of prior thoracic kyphoplasty. More superior compression deformity, chronicity uncertain secondary to lack of priors. Recommend correlation with patient symptoms. 03/07/20 06:21 03/07/20 06:21 MCV 93 fl (80-97) 03/07/20 06:21 MCH 32.4 pg (27.0-33.4) 03/07/20 06:21 MCHC 35.0 g/dL (32.0-36.0) 03/07/20 06:21 RDW 14.5 % (11.5-14.0) H 03/07/20 06:21 Seg Neutrophils % 72.5 % (42-78) 03/07/20 06:21 Chloride 101 mmol/L (98-107) 03/07/20 06:21 Carbon Dioxide 34 mmol/L (22-30) H 03/07/20 06:21 Anion Gap 3 (5-19) L 03/07/20 06:21 Est GFR ( Amer) 54 (>60) L 03/07/20 06:21 Glucose 99 mg/dL (75-110) 03/07/20 06:21 Calcium 8.5 mg/dL (8.4-10.2) 03/07/20 06:21 Magnesium 2.0 mg/dL (1.6-2.3) 03/07/20 06:21 Total Bilirubin 0.6 mg/dL (0.2-1.3) 03/06/20 10:32 AST 23 U/L (14-36) 03/06/20 10:32 Alkaline Phosphatase 111 U/L (38-126) 03/06/20 10:32 Total Protein 6.3 g/dL (6.3-8.2) 03/06/20 10:32 Albumin 3.8 g/dL (3.5-5.0) 03/06/20 10:32 TSH 1.09 uIU/mL (0.47-4.68) 03/07/20 06:21 Urine Color YELLOW 03/06/20 10:32 Urine Appearance SLIGHTLY-CLOUDY 03/06/20 10:32 Urine pH 6.0 (5.0-9.0) 03/06/20 10:32 Ur Specific [place] 1.013 03/06/20 10:32 Urine Protein NEGATIVE mg/dL (NEGATIVE) 03/06/20 10:32 Urine Glucose (UA) NEGATIVE mg/dL (NEGATIVE) 03/06/20 10:32 Urine Ketones NEGATIVE mg/dL (NEGATIVE) 03/06/20 10:32 Urine Blood NEGATIVE (NEGATIVE) 03/06/20 10:32 Urine Nitrite NEGATIVE (NEGATIVE) 03/06/20 10:32 Ur Leukocyte Esterase SMALL (NEGATIVE) H 03/06/20 10:32 Urine WBC (Auto) 12 /HPF 03/06/20 10:32 Urine RBC (Auto) 4 /HPF 03/06/20 10:32 03/06/20 03/06/20 03/06/20 10:32 10:32 10:32 Creatine Kinase 27 L Troponin I < 0.012 NT-Pro-B Natriuret Pep 681 H 03/06/20 14:05 Creatine Kinase Troponin I < 0.012 NT-Pro-B Natriuret Pep Current Medication List Generic Name Dose Route Start Last Admin Trade Name Freq PRN Reason Stop Dose Admin Acetaminophen 650 mg 03/06/20 18:07 Tylenol 650 Mg Supp OR 04/05/20 18:06 Q4HP PRN FOR PAIN OR TEMP Furosemide 20 mg 03/06/20 20:00 03/06/20 21:20 Lasix 20 Mg Tablet PO 04/05/20 19:59 20 mg BID ANA Administration Heparin Sodium (Porcine) 5,000 unit 03/06/20 22:00 03/07/20 06:02 Heparin Inj 5,000 Units/Ml 1 Ml Vial SUBCUT 04/05/20 21:59 5,000 unit Q8 ANA Administration Influenza Virus Vaccine Quadrival 0.5 ml 03/07/20 08:00 Flulaval Quad 2020-21 Vac 0.5 Ml Syr IM 03/07/20 08:01 .ONCE ONE Lidocaine 1 patch 03/07/20 10:00 Lidoderm 5% (700 Mg) Transdermal Patch TP 04/06/20 09:59 DAILY ANA Metoprolol Tartrate 25 mg 03/06/20 22:00 03/06/20 23:54 Lopressor 25 Mg Tablet PO 04/05/20 21:59 25 mg Q12 ANA Administration Pantoprazole Sodium 40 mg 03/07/20 06:00 03/07/20 06:[address] Tablet PO 04/06/20 05:59 40 mg Q6AM ANA Administration Polyethylene Glycol 17 gm 03/07/20 10:00 Miralax Powder 17 Gm/Packet PO 04/06/20 09:59 DAILY ANA Prednisone 5 mg 03/07/20 10:00 Deltasone 5 Mg Tablet PO 04/06/20 09:59 DAILY ANA Discontinued Medications Generic Name Dose Route Start Last Admin Trade Name Freq PRN Reason Stop Dose Admin Acetaminophen 975 mg 03/06/20 12:51 03/06/20 13:23 Tylenol 325 Mg Tablet PO 03/06/20 12:52 975 mg NOW ONE Administration Al Hydrox/Mg Hydrox/Simethicone 30 ml 03/06/20 15:08 03/06/20 15:41 Maalox Plus Susp 30 Udcup PO 03/06/20 15:09 30 ml NOW ONE Administration Furosemide 20 mg 03/06/20 12:51 03/06/20 13:37 Lasix Inj/Pf 20 Mg/2 Ml Sdv IV 03/06/20 12:52 20 mg NOW ONE Administration Lidocaine 1 patch 03/06/20 12:51 03/06/20 13:24 Lidoderm 5% (700 Mg) Transdermal Patch TP 03/06/20 12:52 1 patch NOW ONE Administration Lidocaine HCl 15 ml 03/06/20 15:08 03/06/20 15:41 Xylocaine 2% Viscous Soln 15 Ml Udcup PO 03/06/20 15:09 15 ml NOW ONE Administration Metoprolol Tartrate 25 mg 03/06/20 14:52 03/06/20 15:43 Lopressor 25 Mg Tablet PO 03/06/20 14:53 Not Given NOW ONE Pantoprazole Sodium 40 mg 03/06/20 15:09 03/06/20 15:[address] Tablet PO 03/06/20 15:10 40 mg NOW ONE Administration Prednisone 5 mg 03/06/20 14:53 03/06/20 15:41 Deltasone 5 Mg Tablet PO 03/06/20 14:54 5 mg NOW ONE Administration Assessment & Plan - Diagnosis (1) Tachycardia Plan: Essentially now resolved however she had been experiencing episodes of palpitations associated with dizziness and lightheadedness as well as chest pressure. Telemetry showed artifact versus VT versus torsades. I discussed the case with MERCEDES Lewis at [facility] who reviewed the strips and is of the opinion that it is artifact which I agree with. Her TSH was normal and her troponin has been negative x2. Recommendations: -Continue with current medical management for now. -Continue with cardiac telemetry. (2) CHF exacerbation Qualifiers: Heart failure type: diastolic Qualified Code(s): I50.33 - Acute on chronic diastolic (congestive) heart failure Is this a current diagnosis for this admission?: Yes Plan: The patient apparently has a history of heart failure however she was diagnosed in [place] where she normally lives and I do not have access to any of those records. She has not been seen by a rail operator. Her echocardiogram yesterday demonstrated an essentially normal ejection fraction however the apex was akinetic in some views and mildly hypokinetic in all views therefore I am concerned for coronary artery disease versus Takotsubo cardiomyopathy. Recommendations: -Continue current medical management. -[facility] as scheduled today at 1330. -Further recommendations pending results of left heart catheterization. (3) Hypertension Qualifiers: Hypertension type: essential hypertension Qualified Code(s): I10 - Essential (primary) hypertension Is this a current diagnosis for this admission?: Yes Plan: Her blood pressure is at goal. Recommendations: -Continue current medical management.
[2020-03-07] MEDS ORDERED: HEPARIN SODIUM,PORCINE/NS/PF 2,000 UNIT/1,000 ML RTUINJ IV ONE (12:36)
[2020-03-07] MEDS ORDERED: LIDOCAINE 1% INJ-PF (10 MG/ML) 30 ML SDV ONE (12:36)
[2020-03-07] MEDS: LIDOCAINE 5% (700 MG) TRANSDERMAL ADH..PATCH TP SCH (12:38)
[2020-03-07] MEDS ORDERED: DIPHENHYDRAMINE HCL 50 MG CAPSULE PO ONE (13:00)
[2020-03-07] MEDS ORDERED: METHYLPREDNISOLONE INJ 125 MG/2 ML SDV IV ONE (13:00)
[2020-03-07] MEDS ORDERED: FAMOTIDINE INJ/PF 20 MG/2 ML SDV IV ONE (13:00)
[2020-03-07] MEDS ORDERED: MIDAZOLAM 2 MG/2 ML INJ ONE (13:26)
[2020-03-07] MEDS ORDERED: HEPARIN SOD (PORCINE) 1,000 UNIT/ML 10 ML VIAL ONE (13:27)
[2020-03-07] MEDS ORDERED: FENTANYL CITRATE INJ/PF 100 MCG/2 ML AMPUL ONE (13:27)
[2020-03-07] MEDS ORDERED: RADIAL COCKTAIL SYRINGE 10 ML IV PRN ×4 (13:30)
--- NOTE | 2020-03-07 15:34 | Operative Report ---
Operative Report DATE OF SURGERY: 03/07/20 PREOPERATIVE DIAGNOSIS: Congestive heart failure POSTOPERATIVE DIAGNOSIS: Hypertrophic cardiomyopathy OPERATION: Left heart cath coronary angiography SURGEON: MARIELOS PA ANESTHESIA: Moderate Sedation COMPLICATIONS: None PROCEDURE: Following informed consent, the patient was premedicated with Diazepam and Benadryl. The right femoral region was prepared in the usual sterile and draped manner and anesthetized with 1% Lidocaine solution. A 6 [place] Introducer was placed transcutaneously into the right femoral artery without difficulty. A 6 [place] angled pigtail catheter was used for left heart catheterization and left ventriculography. This was performed in the standard BHARDWAJ projection. LVEDP was measured prior to and after the ventriculogram. Pull back across the aortic valve was performed with continuous hemodynamic monitoring. The catheter was exchanged to a JL-4 coronary catheter over a 0.035 ``J guidewire, and selective angiography was performed in multiple orthogonal projections. Selective right coronary angiography was performed using a JR-4 catheter. At the conclusion of the procedure, the catheter and sheaths were removed and hemostasis was achieved without difficulty. The patient left the Cardiac Catheterization Lab in stable condition, with intact distal pulses and no chest pain or other complications from the procedure. Conscious sedation was initiated, monitored, and maintained during the procedure with the start time of [1435] and a completion time of 1455 for a total procedure time of 20. A total of 1 milligrams of Versed and 75 mcg fentanyl were used for conscious sedation. HEMODYNAMIC DATA: [Aortic pressure the beginning the case is 116/47 post ventriculography LV pressure is 122/11 aortic pressure on pullback is 120/49 there is no gradient across the aortic valve] CORONARY ANATOMY: [] ANGIOGRAPHY: [] VENTRICULOGRAPHY: Ventriculography is performed in the BHARDWAJ projection and demonstrates [hyperdynamic left ventricular function with an estimated ejection fraction of greater than 65% with a spade configuration consistent with apical hypertrophy] . CORONARY ANGIOGRAPHY: [] LEFT MAIN: [Left main is normal the LAD is a type a vessel with a 30% stenosis in the proximal portion there is a proximal diagonal vessel which is normal] LEFT ANTERIOR DESCENDING: [] CIRCUMFLEX CORONARY: [The circumflex is normal with minor luminal irregularities] RIGHT CORONARY ARTERY: [The right coronary artery is a dominant vessel supplying the PDA and posterior lateral branches this is normal] IMPRESSION: [1. Normal left ventricular function 2. No evidence of valvular heart disease 3. Nonobstructive coronary disease]
--- NOTE | 2020-03-07 17:37 | EKG REPORT ---
SEVERITY:- ABNORMAL ECG - SINUS RHYTHM LVH WITH SECONDARY REPOLARIZATION ABNORMALITY BORDERLINE PROLONGED QT INTERVAL : Confirmed by: Lis Berrios MD 07-Mar-2020 17:36:17
--- NOTE | 2020-03-07 18:28 | PDOC PROGRESS REPORT ---
Subjective Progress Note for:: 03/07/20 Subjective:: Patient seen on morning rounds. She has been is resting in bed. She notes significant improvement in the pain, swelling and appearance of her legs. She is happy to report that she is now able to wiggle her toes and move her ankles. Her biggest concern today is nausea, but she suspect is secondary to the fact that she has not eaten since last night. She does note an episode of increased nausea, chest discomfort and palpitations which she experienced while sitting at her bedside earlier this morning. This resolved after she laid down and "calmed down". She notes occasionally feeling lightheaded, primarily when moving from a supine to seated to standing position. Otherwise denies fever, chills, change in vision, shortness of breath, cough, vomiting, diarrhea, constipation, or urinary symptoms. Prior to examining the patient I was contacted by patient's nurse regarding what appeared to be SVT on monitor. When arrived to evaluate patient her heart rate was in 70s and the EKG appeared to be in normal sinus rhythm. Reviewed rhythm strips, rhythm appeared to be VF/VT versus torsades versus artifact. EKG was ordered. Patient is followed by Dr. Barone, cardiology, who had EP look at rhythm strips, suspect secondary to artifact not real VF or VT. Nurse expresses no further concerns or complaints. Reason For Visit: ACUTE ON CHRONIC DIASTOLIC CONGESTIVE HEART Physical Exam Vital Signs: Temp Pulse Resp BP Pulse Ox 98.2 F 96 18 117/62 96 03/06/20 23:40 03/07/20 02:00 03/06/20 23:40 03/06/20 23:40 03/06/20 23:40 Intake & Output 03/06/20 03/07/20 03/08/20 06:59 06:59 06:59 Intake Total 900 Output Total 1425 Balance -525 Weight 71.3 kg General appearance: PRESENT: no acute distress, cooperative, hard of hearing, obese, other - This is a pleasant 79-year-old female Head exam: PRESENT: atraumatic, normocephalic Eye exam: PRESENT: EOMI, PERRLA, other - Clear drainage from her right eye noted with associated mildly erythematous eyelid edges. ABSENT: conjunctival injection Mouth exam: PRESENT: moist, tongue midline Neck exam: PRESENT: full ROM. ABSENT: lymphadenopathy, tenderness Respiratory exam: PRESENT: rales - bibasilar, symmetrical, unlabored. ABSENT: tachypnea Cardiovascular exam: PRESENT: RRR, +S1, +S2. ABSENT: diastolic murmur, systolic murmur Pulses: PRESENT: +2 pedal pulses bilateral GI/Abdominal exam: PRESENT: normal bowel sounds, soft, other - umnbilical hernia. ABSENT: distended, firm, guarding, tenderness Gentrourinary exam: PRESENT: indwelling catheter Extremities exam: PRESENT: full ROM, tenderness - Minimal, +2 edema - with associated erythema bilaterally Musculoskeletal exam: PRESENT: ambulatory, full ROM. ABSENT: dislocation Neurological exam: PRESENT: alert, awake, oriented to person, oriented to place, oriented to time, oriented to situation, CN II-XII grossly intact. ABSENT: altered, motor sensory deficit Psychiatric exam: PRESENT: appropriate affect, normal mood Skin exam: PRESENT: dry, intact, warm. ABSENT: rash Results Laboratory Results: 03/07/20 06:21 03/07/20 06:21 03/06/20 03/06/20 03/06/20 10:32 10:32 10:32 WBC 9.7 RBC 4.45 Hgb 14.5 Hct 41.5 MCV 93 MCH 32.6 MCHC 35.0 RDW 15.2 H Plt Count 295 Seg Neutrophils % 72.8 Sodium 138.3 Potassium 4.0 Chloride 97 L Carbon Dioxide 32 H Anion Gap 9 BUN 33 H Creatinine 1.51 H Est GFR ( Amer) 40 L Glucose 94 Calcium 9.4 Magnesium Total Bilirubin 0.6 AST 23 Alkaline Phosphatase 111 Total Protein 6.3 Albumin 3.8 TSH Urine Color YELLOW Urine Appearance SLIGHTLY-CLOUDY Urine pH 6.0 Ur Specific [place] 1.013 Urine Protein NEGATIVE Urine Glucose (UA) NEGATIVE Urine Ketones NEGATIVE Urine Blood NEGATIVE Urine Nitrite NEGATIVE Ur Leukocyte Esterase SMALL H Urine WBC (Auto) 12 Urine RBC (Auto) 4 03/06/20 03/07/20 03/07/20 10:32 06:21 06:21 WBC 7.8 RBC 3.70 L Hgb 12.0 D Hct 34.3 L MCV 93 MCH 32.4 MCHC 35.0 RDW 14.5 H Plt Count 240 Seg Neutrophils % 72.5 Sodium 138.4 Potassium 3.8 Chloride 101 Carbon Dioxide 34 H Anion Gap 3 L BUN 25 H Creatinine 1.16 Est GFR ( Amer) 54 L Glucose 99 Calcium 8.5 Magnesium 2.0 Total Bilirubin AST Alkaline Phosphatase Total Protein Albumin TSH 3.83 Urine Color Urine Appearance Urine pH Ur Specific [place] Urine Protein Urine Glucose (UA) Urine Ketones Urine Blood Urine Nitrite Ur Leukocyte Esterase Urine WBC (Auto) Urine RBC (Auto) 03/07/20 06:21 WBC RBC Hgb Hct MCV MCH MCHC RDW Plt Count Seg Neutrophils % Sodium Potassium Chloride Carbon Dioxide Anion Gap BUN Creatinine Est GFR ( Amer) Glucose Calcium Magnesium Total Bilirubin AST Alkaline Phosphatase Total Protein Albumin TSH 1.09 Urine Color Urine Appearance Urine pH Ur Specific [place] Urine Protein Urine Glucose (UA) Urine Ketones Urine Blood Urine Nitrite Ur Leukocyte Esterase Urine WBC (Auto) Urine RBC (Auto) 03/06/20 03/06/20 03/06/20 10:32 10:32 10:32 Creatine Kinase 27 L Troponin I < 0.012 NT-Pro-B Natriuret Pep 681 H 03/06/20 14:05 Creatine Kinase Troponin I < 0.012 NT-Pro-B Natriuret Pep Impressions: Chest X-Ray 03/06/20 10:12 IMPRESSION: No evidence of acute intrathoracic process. Evidence of prior thoracic kyphoplasty. More superior compression deformity, chronicity uncertain secondary to lack of priors. Recommend correlation with patient symptoms. Assessment and Plan - Diagnosis (1) CHF exacerbation Qualifiers: Heart failure type: diastolic Qualified Code(s): I50.33 - Acute on chronic diastolic (congestive) heart failure Is this a current diagnosis for this admission?: Yes Plan: - Echo showed preserved LV systolic function 65-70% with grade I diastolic dysfunction and mild apical hypokinesis. - Dr. Barone with cardiology was consulted and saw the patient. Discussed case in detail. - Recommend cardiac catheterization for further evaluation of apical hypokinesis - Cath to be performed today. - Pro-BNP elevated 681 at time of admission - Patient admittedly non-compliant with home medication of Torsemide. - Continue Lasix 20mg BID -> Significant improvement in LE edema - Monitor I&Os (net fluid balance -525) and daily weights - Cardiac diet in place - Dietitian for patient education on cardiac diet - She is not followed by billing department supervisor at home, recommend establishing care with billing department supervisor for routine follow up (2) Dyspnea Qualifiers: Dyspnea type: shortness of breath Qualified Code(s): R06.02 - Shortness of breath; R06.00 - Dyspnea, unspecified; R06.01 - Orthopnea Is this a current diagnosis for this admission?: Yes Plan: - Secondary to CHF exacerbation - Resolved with Lasix. - 02sat 98 on room air. - Continue to monitor (3) Peripheral edema Is this a current diagnosis for this admission?: Yes Plan: - Improved with Lasix (3+ -> 2+ today) - Suspect secondary to non-compliance with diuretic. - Continue wit Lasix 20mg BID (4) Tachycardia Is this a current diagnosis for this admission?: Yes Plan: - Bout of VT/VF vs torsades de points vs artifact on rhythm strip. - EKG ordered - Pt seen by Dr. Barone, cardiology, who had EP look at rhythm strips, suspect secondary to artifact not real VF or VT. - Avoid medications that cause QT prolongation including Amioderone. - Tele monitor showed HR in 70s - Increase Metoprolol to 50mg - K and Magnesium initiated - Continue to monitor on telemetry (5) [id number] kidney injury Qualifiers: Acute renal failure type: unspecified Chronic kidney disease stage: stage 3 (moderate) Chronic kidney disease stage 3 subtype: stage 3b (GFR 30-44) Qualified Code(s): N17.9 - Acute kidney failure, unspecified; N18.32 - Chronic kidney disease, stage 3b Is this a current diagnosis for this admission?: Yes Plan: - Improving with diuretic - BUN 33 -> 25, Cr 1.51 -> 1.16, eGFR 33 -> 45 - Monitor BMP daily - Not followed by strategy specialist (6) Chronic back pain Qualifiers: Back pain location: thoracic back pain Back pain laterality: midline Qualified Code(s): M54.6 - Pain in thoracic spine; G89.29 - Other chronic pain Is this a current diagnosis for this admission?: Yes Plan: - History of chronic back pain secondary to impingement of L4-L5 - Followed by pain management, scheduled for injection 03/10/20 - Treated with Tramadol and Tylenol - Will treat inpatient with kpad, Tylenol q4 hours, lidoacine patch and Tramadol as needed for pain >3/5. (7) GERD (gastroesophageal reflux disease) Qualifiers: Esophagitis presence: esophagitis presence not specified Qualified Code(s): K21.9 - Gastro-esophageal reflux disease without esophagitis Is this a current diagnosis for this admission?: Yes Plan: - Long standing treatment with Omeprazole daily - Resume treatment regimen at this time (8) Hypertension Qualifiers: Hypertension type: essential hypertension Qualified Code(s): I10 - Essential (primary) hypertension Is this a current diagnosis for this admission?: Yes Plan: - BP currently low 117/70s. - Home regimen includes Lisinopril, will hold at this time until kidney function normalizes. - Continue to monitor q4 hours. (9) HLD (hyperlipidemia) Qualifiers: Hyperlipidemia type: unspecified Qualified Code(s): E78.5 - Hyperlipidemia, unspecified Is this a current diagnosis for this admission?: Yes Plan: - Resume home treatment regimen at this time. (10) Obesity (BMI 30-39.9) Is this a current diagnosis for this admission?: Yes Plan: - BMI 35.2 - Discussed dietary and lifestyle changes - Dietitian consulted - Time Time Spent with patient: 15-24 minutes Medications reviewed and adjusted accordingly: Yes Anticipated Discharge Disposition: Home, Self Care Anticipated Discharge Timeframe: within 48 hours
[2020-03-07] MEDS ORDERED: ATORVASTATIN CALCIUM 40 MG TABLET PO SCH (22:00)
[2020-03-08] MEDS: PANTOPRAZOLE SODIUM 40 MG TABLET.DR PO SCH (05:28)
[2020-03-08] MEDS: HEPARIN SOD (PORCINE) 5,000 UNIT/ML 1 ML VIAL SUBCUT SCH (05:28)
[2020-03-08] MEDS ORDERED: FLUTICASONE NASAL SPRAY 50 MCG/SPRY 120 SPRAY/16 GM NASL SCH (10:00)
[2020-03-08] MEDS ORDERED: LORATADINE 10 MG TABLET PO SCH (10:00)
[2020-03-08] MEDS: MAGNESIUM OXIDE 400 MG TABLET PO SCH (10:54)
[2020-03-08] MEDS: METOPROLOL TARTRATE 50 MG TABLET PO SCH (10:54)
[2020-03-08] MEDS: POLYETHYLENE GLYCOL 3350 POWDER 17 GM/1 PACKET PO SCH (10:56)
[2020-03-08] MEDS ORDERED: ACETAMINOPHEN 325 MG TABLET ONE (11:00)
[2020-03-08] MEDS ORDERED: FUROSEMIDE 20 MG TABLET PO ONE (11:02)
[2020-03-08] MEDS ORDERED: LISINOPRIL 5 MG TABLET PO SCH (11:15)
[2020-03-08] MEDS ORDERED: FUROSEMIDE 40 MG TABLET PO ONE (11:30)
[2020-03-08] MEDS: PREDNISONE 5 MG TABLET PO SCH (11:50)
[2020-03-08] MEDS: LIDOCAINE 5% (700 MG) TRANSDERMAL ADH..PATCH TP SCH (11:51)
[2020-03-08] MEDS ORDERED: ACETAMINOPHEN 325 MG TABLET PO SCH (12:00)
[2020-03-08 12:16] VITALS: BP 127/65
--- NOTE | 2020-03-08 12:43 | PDOC PROGRESS REPORT ---
Subjective Progress Note for:: 03/08/20 Subjective:: JAIR JUNIOR is a 79 year old female with PMHx of CHF, HTN, GERD, osteoperosis, and chronic back pain who presented to the ED today with concerns regarding 5 week history of gradually increasing lower extremity swelling with associated redness, pain, numbness and tingling. She also notes intermitted SOB this morning, which has since resolved. In the ED significant she was found to be tachycardic in the 120s and blood pressure low 100/60s but since admission this has resolved. She also was noted to have EZE which has also resolved. She was given 1 dose of Lasix in the ER and her fluid balance as of earlier today was - 525 cc. This morning she is asymptomatic however yesterday had an episode of chest pressure associated with nausea and dizziness at which point she states that the nurses came into the room and told her that her heart rate was really fast. The rhythm strips at that time are of poor quality and I am not completely sure that this is artifact versus VT versus torsades. She has no symptoms at the time of my evaluation. Her echocardiogram yesterday demonstrated an essentially normal ejection fraction however the apex was mildly hypokinetic. 03/08/2020: The patient had an uneventful night last night. She had a left heart catheterization only revealing nonobstructive coronary artery disease in the LAD and the left circumflex. She feels 100% better with less lower extremity edema and no cardiovascular symptoms. Physical exam on 03/08/2020: GENERAL: Pleasant and conversational. Oriented x3 with normal mood. Not in acute distress. Well groomed and well developed. HEENT: Normocephalic, atraumatic. Pupils equal. Sclerae anicteric. Oropharynx moist. NECK: No JVD. No carotid bruits. LUNGS: Clear to auscultation bilaterally. Normal respiratory effort without the use of accessory muscles or intercostal retractions. CARDIOVASCULAR: Regular rate and rhythm, normal S1 and S2 without murmurs, rubs, or gallops. PMI not displaced. ABDOMEN: No masses or tenderness to palpation. No bruit. No splenomegaly or hepatomegaly. No abdominal aorta bruit noted. EXTREMITIES: Trace pitting edema bilaterally, no cyanosis, no clubbing. +2 pulses femoral and pedal pulses bilaterally. Erythema bilaterally consistent with venous stasis. Right groin: Normal femoral pulse, no bruit, normal distal pulses on the right leg, no signs of infection or bleeding. SKIN: No lesions or rashes. MUSCULOSKELETAL: No chest tenderness to palpation. NEUROLOGIC: Nonfocal. No gross sensory or motor deficits bilateral upper or lower extremities. Cardiac studies: Echocardiogram on 03/06/2020: -EF 65 to 70%. -Grade 1 diastolic dysfunction. -Trace to mild MR, trace to mild TR, trace PI. -Mild hypokinesis of the ventricular apex. LHC on 03/07/2020: -Left main: Normal. -LAD: 30% proximal stenosis. -Left circumflex: Minor luminal irregularities. -RCA: Normal. -LV gram: Hyperdynamic systolic function with an EF greater than 65%. Reason For Visit: ACUTE ON CHRONIC DIASTOLIC CONGESTIVE HEART Physical Exam Vital Signs: Temp Pulse Resp BP Pulse Ox 98.3 F 69 16 129/57 H 96 03/07/20 16:30 03/08/20 02:00 03/07/20 16:30 03/07/20 17:27 03/07/20 17:27 Intake & Output 03/06/20 03/07/20 03/08/20 06:59 06:59 06:59 Intake Total 900 580 Output Total 1425 550 Balance -525 30 Weight 71.3 kg 68.1 kg Results Laboratory Results: 03/07/20 06:21 03/07/20 06:21 03/07/20 03/07/20 06:21 06:21 Sodium 138.4 Potassium 3.8 Chloride 101 Carbon Dioxide 34 H Anion Gap 3 L BUN 25 H Creatinine 1.16 Est GFR ( Amer) 54 L Glucose 99 Calcium 8.5 Magnesium 2.0 TSH 1.09 03/06/20 03/06/20 03/06/20 10:32 10:32 10:32 Creatine Kinase 27 L Troponin I < 0.012 NT-Pro-B Natriuret Pep 681 H 03/06/20 14:05 Creatine Kinase Troponin I < 0.012 NT-Pro-B Natriuret Pep Impressions: Chest X-Ray 03/06/20 10:12 IMPRESSION: No evidence of acute intrathoracic process. Evidence of prior thoracic kyphoplasty. More superior compression deformity, chronicity uncertain secondary to lack of priors. Recommend correlation with patient symptoms. 03/07/20 06:21 03/07/20 06:21 MCV 93 fl (80-97) 03/07/20 06:21 MCH 32.4 pg (27.0-33.4) 03/07/20 06:21 MCHC 35.0 g/dL (32.0-36.0) 03/07/20 06:21 RDW 14.5 % (11.5-14.0) H 03/07/20 06:21 Seg Neutrophils % 72.5 % (42-78) 03/07/20 06:21 Chloride 101 mmol/L (98-107) 03/07/20 06:21 Carbon Dioxide 34 mmol/L (22-30) H 03/07/20 06:21 Anion Gap 3 (5-19) L 03/07/20 06:21 Est GFR ( Amer) 54 (>60) L 03/07/20 06:21 Glucose 99 mg/dL (75-110) 03/07/20 06:21 Calcium 8.5 mg/dL (8.4-10.2) 03/07/20 06:21 Magnesium 2.0 mg/dL (1.6-2.3) 03/07/20 06:21 Total Bilirubin 0.6 mg/dL (0.2-1.3) 03/06/20 10:32 AST 23 U/L (14-36) 03/06/20 10:32 Alkaline Phosphatase 111 U/L (38-126) 03/06/20 10:32 Total Protein 6.3 g/dL (6.3-8.2) 03/06/20 10:32 Albumin 3.8 g/dL (3.5-5.0) 03/06/20 10:32 TSH 1.09 uIU/mL (0.47-4.68) 03/07/20 06:21 Urine Color YELLOW 03/06/20 10:32 Urine Appearance SLIGHTLY-CLOUDY 03/06/20 10:32 Urine pH 6.0 (5.0-9.0) 03/06/20 10:32 Ur Specific [place] 1.013 03/06/20 10:32 Urine Protein NEGATIVE mg/dL (NEGATIVE) 03/06/20 10:32 Urine Glucose (UA) NEGATIVE mg/dL (NEGATIVE) 03/06/20 10:32 Urine Ketones NEGATIVE mg/dL (NEGATIVE) 03/06/20 10:32 Urine Blood NEGATIVE (NEGATIVE) 03/06/20 10:32 Urine Nitrite NEGATIVE (NEGATIVE) 03/06/20 10:32 Ur Leukocyte Esterase SMALL (NEGATIVE) H 03/06/20 10:32 Urine WBC (Auto) 12 /HPF 03/06/20 10:32 Urine RBC (Auto) 4 /HPF 03/06/20 10:32 03/06/20 03/06/20 03/06/20 10:32 10:32 10:32 Creatine Kinase 27 L Troponin I < 0.012 NT-Pro-B Natriuret Pep 681 H 03/06/20 14:05 Creatine Kinase Troponin I < 0.012 NT-Pro-B Natriuret Pep Current Medication List Generic Name Dose Route Start Last Admin Trade Name Freq PRN Reason Stop Dose Admin Acetaminophen 975 mg 03/08/20 12:00 Tylenol 325 Mg Tablet PO 04/07/20 11:59 Q8 ANA Artificial Tears 1 drop 03/07/20 11:46 Refresh Plus 0.5% Oph Soln 0.4 Ml [place] OU 04/06/20 11:45 QIDP PRN DRY EYE(S) Atorvastatin Calcium 40 mg 03/07/20 22:00 03/07/20 21:22 Lipitor 40 Mg Tablet PO 04/06/20 21:59 40 mg QHS ANA Administration Dextrose 12.5 gm 03/07/20 10:50 Dextrose Inj 50% Syringe (25 Gm/50 Ml) IV 04/06/20 10:49 PRN PRN FOR BG 50-69 IN ALERT PATIENT Protocol Dextrose 25 gm 03/07/20 10:50 Dextrose Inj 50% Syringe (25 Gm/50 Ml) IV 04/06/20 10:49 PRN PRN See Label Comments Protocol Fluticasone Propionate 1 spray 03/08/20 10:00 03/08/20 10:56 Flonase Nasal Tracy 50 Mcg/Tracy 16 Gm NASL 04/07/20 09:59 1 spr DAILY ANA Administration Glucagon 1 mg 03/07/20 10:50 Glucagen Inj 1 Mg Vial SUBCUT 04/06/20 10:49 PRN PRN Evaluate for BG < 70 Protocol Glucose 15 gm 03/07/20 10:50 Glutose 40% Gel 15 Gm Tube PO 04/06/20 10:49 PRN PRN For BG 50-69 in Alert Patient Protocol Glucose 30 gm 03/07/20 10:50 Glutose 40% Gel 15 Gm Tube PO 04/06/20 10:49 PRN PRN FOR BG < 50 IN ALERT PATIENT Protocol Lidocaine 1 patch 03/07/20 10:00 03/08/20 11:51 Lidoderm 5% (700 Mg) Transdermal Patch TP 04/06/20 09:59 1 patch DAILY ANA Administration Lisinopril 5 mg 03/08/20 11:15 03/08/20 11:50 Prinivil 5 Mg Tablet PO 04/07/20 11:14 5 mg DAILY ANA Administration Loratadine 10 mg 03/08/20 10:00 03/08/20 10:54 Claritin 10 Mg Tablet PO 04/07/20 09:59 10 mg DAILY ANA Administration Magnesium Oxide 400 mg 03/07/20 10:00 03/08/20 10:54 Mag-Ox 400 Mg Tablet PO 04/06/20 09:59 400 mg DAILY ANA Administration Metoprolol Tartrate 50 mg 03/07/20 10:00 03/08/20 10:54 Lopressor 50 Mg Tablet PO 04/06/20 09:59 50 mg Q12 ANA Administration Pantoprazole Sodium 40 mg 03/07/20 06:00 03/08/20 05:[address] Tablet PO 04/06/20 05:59 40 mg Q6AM ANA Administration Polyethylene Glycol 17 gm 03/07/20 10:00 03/08/20 10:56 Miralax Powder 17 Gm/Packet PO 04/06/20 09:59 Not Given DAILY ANA Prednisone 5 mg 03/07/20 10:00 03/08/20 11:50 Deltasone 5 Mg Tablet PO 04/06/20 09:59 5 mg DAILY ANA Administration Discontinued Medications Generic Name Dose Route Start Last Admin Trade Name Freq PRN Reason Stop Dose Admin Acetaminophen 975 mg 03/06/20 12:51 03/06/20 13:23 Tylenol 325 Mg Tablet PO 03/06/20 12:52 975 mg NOW ONE Administration Acetaminophen 650 mg 03/06/20 18:07 Tylenol 650 Mg Supp IA 04/05/20 18:06 Q4HP PRN FOR PAIN OR TEMP Acetaminophen Confirm 03/08/20 11:00 03/08/20 11:04 Tylenol 325 Mg Tablet Administered 03/08/20 11:01 325 mg Dose Administration 325 mg .ROUTE .STK-MED ONE Al Hydrox/Mg Hydrox/Simethicone 30 ml 03/06/20 15:08 03/06/20 15:41 Maalox Plus Susp 30 Udcup PO 03/06/20 15:09 30 ml NOW ONE Administration Diphenhydramine HCl 50 mg 03/07/20 13:00 03/07/20 12:58 Benadryl 50 Mg Capsule PO 03/07/20 13:01 50 mg NOW ONE Administration Famotidine 20 mg 03/07/20 13:00 03/07/20 12:58 Pepcid Inj/Pf 20 Mg/2 Ml Sdv IV 03/07/20 13:01 20 mg NOW ONE Administration Fentanyl Citrate Confirm 03/07/20 13:27 03/07/20 16:27 Sublimaze Inj/Pf 100 Mcg/2 Ml Ampule Administered 03/07/20 13:28 Not Given Dose 100 mcg .ROUTE .STK-MED ONE Furosemide 20 mg 03/06/20 12:51 03/06/20 13:37 Lasix Inj/Pf 20 Mg/2 Ml Sdv IV 03/06/20 12:52 20 mg NOW ONE Administration Furosemide 20 mg 03/06/20 20:00 03/07/20 10:58 Lasix 20 Mg Tablet PO 04/05/20 19:59 20 mg BID ANA Administration Furosemide 40 mg 03/08/20 11:30 03/08/20 11:51 Lasix 40 Mg Tablet PO 03/08/20 11:31 40 mg NOW ONE Administration Heparin Sodium (Porcine) 5,000 unit 03/06/20 22:00 03/08/20 05:28 Heparin Inj 5,000 Units/Ml 1 Ml Vial SUBCUT 04/05/20 21:59 5,000 unit Q8 ANA Administration Heparin Sodium (Porcine) Confirm 03/07/20 13:27 03/07/20 16:27 Heparin Inj 1,000 Unit/Ml 10 Ml Vial Administered 03/07/20 13:28 Not Given Dose 10,000 unit .ROUTE .STK-MED ONE Amiodarone HCl 150 mg/ 100 mls @ 600 mls/hr 03/07/20 10:00 Dextrose IV 03/07/20 10:09 NOW ONE Protocol Amiodarone HCl 900 mg/ 500 mls @ 0 mls/hr 03/07/20 10:30 Dextrose IV 03/10/20 10:29 CONTINUOUS PRN THIS MED IS NOT "PRN" Protocol Per Protocol Magnesium Sulfate 4 gm in 100 mls @ 25 mls/hr 03/07/20 11:00 03/07/20 20:49 Magnesium Sulfate Rtu 4 Gm/100 Ml Premix Bag IV 03/07/20 14:59 Infused NOW ONE Infusion Verapamil HCl 5 mg/ Lidocaine 10 mls @ 0 mls/hr 03/07/20 13:30 HCl 2 ml/ Sodium Chloride 6 ml IV 03/07/20 23:59 / Syringe .CATHLAB PRN THIS MED IS NOT "PRN" As Directed Heparin Sodium (Porcine) Confirm 03/07/20 12:36 03/07/20 16:26 Heparin Rtu 1,000 Units/500 Ml Ns Pressure Bg Administered 03/07/20 12:37 Not Given Dose 2,000 unit in 1,000 mls @ ud IV .STK-MED ONE Influenza Virus Vaccine Quadrival 0.5 ml 03/07/20 08:00 Flulaval Quad 2020-21 Vac 0.5 Ml Syr IM 03/07/20 08:01 .ONCE ONE Lidocaine 1 patch 03/06/20 12:51 03/06/20 13:24 Lidoderm 5% (700 Mg) Transdermal Patch TP 03/06/20 12:52 1 patch NOW ONE Administration Lidocaine HCl 15 ml 03/06/20 15:08 03/06/20 15:41 Xylocaine 2% Viscous Soln 15 Ml Udcup PO 03/06/20 15:09 15 ml NOW ONE Administration Lidocaine HCl Confirm 03/07/20 12:36 03/07/20 16:26 Xylocaine 1% Inj-Pf (10 Mg/Ml) 30 Ml Sdv Administered 03/07/20 12:37 Not Given Dose 30 ml .ROUTE .STK-MED ONE Methylprednisolone Sodium Succinate 100 mg 03/07/20 13:00 03/07/20 12:58 Solu-Medrol Inj/Pf 125 Mg/2 Ml Sdv IV 03/07/20 13:01 100 mg NOW ONE Administration Metoprolol Tartrate 25 mg 03/06/20 14:52 03/06/20 15:43 Lopressor 25 Mg Tablet PO 03/06/20 14:53 Not Given NOW ONE Metoprolol Tartrate 25 mg 03/06/20 22:00 03/06/20 23:54 Lopressor 25 Mg Tablet PO 04/05/20 21:59 25 mg Q12 ANA Administration Midazolam HCl Confirm 03/07/20 13:26 03/07/20 16:27 Versed 2 Mg/2 Ml Inj Administered 03/07/20 13:27 Not Given Dose 2 mg .ROUTE .STK-MED ONE Pantoprazole Sodium 40 mg 03/06/20 15:09 03/06/20 15:[address] Tablet PO 03/06/20 15:10 40 mg NOW ONE Administration Potassium Chloride 40 meq 03/07/20 10:00 03/07/20 10:58 Klor-Con 10 Meq Tablet Er PO 04/06/20 09:59 40 meq DAILY ANA Administration Prednisone 5 mg 03/06/20 14:53 03/06/20 15:41 Deltasone 5 Mg Tablet PO 03/06/20 14:54 5 mg NOW ONE Administration Assessment & Plan - Diagnosis (1) Tachycardia Plan: Now resolved. Recommendations: -The patient may be discharged home from the cardiovascular standpoint. -Follow-up with primary care provider. (2) CHF exacerbation Qualifiers: Heart failure type: diastolic Qualified Code(s): I50.33 - Acute on chronic diastolic (congestive) heart failure Is this a current diagnosis for this admission?: Yes Plan: She feels 100% better, without heart failure symptoms or heart failure on exam. No evidence of obstructive coronary artery disease on left heart catheterization yesterday. Recommendations: -Continue current medical management including TARA inhibitor. -The patient may be discharged home. -Follow-up with Dr. Malcolm in our [place] office in 1 week. The patient was given the office address and phone number. (3) Hypertension Qualifiers: Hypertension type: essential hypertension Qualified Code(s): I10 - Essential (primary) hypertension Is this a current diagnosis for this admission?: Yes Plan: Her blood pressure is at goal. Recommendations: -Continue current medical management.
--- NOTE | 2020-03-08 18:37 | PDOC DISCHARGE SUMMARY ---
Impression - Admit/DC Date/PCP Admission Date/Primary Care Provider: 03/06/20 16:10 Discharge Date: 03/08/20 - Discharge Diagnosis (1) CHF exacerbation Is this a current diagnosis for this admission?: Yes (2) Dyspnea Is this a current diagnosis for this admission?: Yes (3) Peripheral edema Is this a current diagnosis for this admission?: Yes (4) Tachycardia Is this a current diagnosis for this admission?: Yes (5) Nonobstructive atherosclerosis of coronary artery Is this a current diagnosis for this admission?: Yes (6) Dihro-zv-cwzqazg kidney injury Is this a current diagnosis for this admission?: Yes (7) Chronic back pain Is this a current diagnosis for this admission?: Yes (8) GERD (gastroesophageal reflux disease) Is this a current diagnosis for this admission?: Yes (9) Hypertension Is this a current diagnosis for this admission?: Yes (10) HLD (hyperlipidemia) Is this a current diagnosis for this admission?: Yes (11) Obesity (BMI 30-39.9) Is this a current diagnosis for this admission?: Yes - Assessment Summary: Patient evaluated on afternoon rounds. She states that she "feels better than ever". She is without heart failure symptoms or evidence of heart failure on exam and provides no complaints or concerns to me today. Patient was evaluated by Dr. Barone and cleared for discharge at this time with instructions to f/u with Dr. Malcolm in 1 week. Patient was evaluated and cleared by PT who recommended home health PT for strength training. Discussed all clinical and laboratory findings with the patient in detail. The patient and her daughter and son-in-law were made aware of all medication changes made and expressed understanding and agreed to treatment plan. She is stable for discharge at this time. CHF exacerbation: Grade I Diastolic Dysfunction with Mild Hypokinesis - Hx of CHF, admitidly non-compliant with home regimen. - Presented c/o progressivly increasing LE edema - Pro-BNP elevated 681 at time of admission - Echo: preserved LV systolic function 65-70% with grade I diastolic dysfunction and mild apical hypokinesis. - Case followed by Dr. Barone with cardiology. - Tx with Furosemide 20mg with significant improvement in LE edema - Recommend cardiac diet - Weight herself daily, report to medical provider if weight >2lbs in one day or 5lbs in one week - Continue with Torsemide as prescribed, provided with rx for Lisinopril 5mg daily - F/u with cardiology in x1 week from disposition Dyspnea: Resolved - Secondary to CHF exacerbation - Tx'd with Lasix. Peripheral edema: Significantly improved - Initially presented 3+ LE edema bilaterally, 1+ pitting edema - Tx'd with lasix Tachycardia: Resolved - Bout of VT/VF vs torsades de points vs artifact on rhythm strip. - Pt seen by Dr. Barone, cardiology, who had EP look at rhythm strips, suspect secondary to artifact not real VF or VT. - Avoid medications that cause QT prolongation including Amioderone. - Increase home dose Metoprolol to 50mg daily (previously 25mg daily) Non-Obstructive Coronary Disease - As found on left heart catheter - F/u with Dr. Malcolm in [place] office in 1 week Klkop-al-brnbird kidney injury: Resolved - Improved with diuretic Chronic back pain: Significantly improved with lidocaine patch - History of chronic back pain secondary to impingement of L4-L5 - Followed by pain management, scheduled for injection 03/10/20 - Significantly improved with lidocaine patch - Provided with rx today GERD (gastroesophageal reflux disease) - Managed with home medications Hypertension - Blood pressure at goal. - Continue with current home regimen HLD (hyperlipidemia) - Continue statin therapy Obesity (BMI 30-39.9) - BMI 35.2, suspect dietary changes will improve back pain and overall quality of life - Discussed with patient, she is understanding of this - Additional Information Resuscitation Status: Do Not Resuscitate Discharge Diet: Cardiac Discharge Activity: Activity As Tolerated, Balance Activity w/Rest, No Lifting Over 10 Pounds, Slowly Increase Activity, Weigh Daily Referrals: [facility] / [facility] [Other] - 03/15/20 9:30 am [facility] [Outside] Prescriptions: Lidocaine [Lidoderm 5% (700 mg) Transdermal Patch] 1 patch TP DAILY #10 adh..patch Lisinopril [Prinivil 5 mg Tablet] 5 mg PO DAILY #30 tablet Metoprolol Succinate [Toprol Xl 50 mg Tab.sr] 50 mg PO DAILY #30 tab.sr.24h Home Medications: Ascorbic Acid [Vitamin C 500 mg Tablet] 500 mg PO DAILY 03/06/20 Aspirin [Ecotrin 81 mg EC Tablet] 81 mg PO DAILY 03/06/20 Atorvastatin Calcium [Lipitor 40 mg Tablet] 40 mg PO QHS 03/06/20 Calcium Carbonate [Calcium] 1,500 mg PO DAILY 03/06/20 Cholecalciferol (Vitamin D3) [Vitamin D3 1000 Unit Tablet] 1,000 unit PO DAILY 03/06/20 Cinnamon Bark/Chromium Picolin [Cinnamon Plus Chromium Capsule] 1 cap PO DAILY 03/06/20 Cyanocobalamin (Vitamin B-12) [Vitamin B-12 1000 mcg Tablet] 1 tab PO DAILY 03/06/20 Fluticasone Propionate [Flonase Nasal [place] 50 Mcg/[place] 16 gm] 2 sprays NASL DAILY 03/06/20 Garlic 1,000 mg PO DAILY 03/06/20 Cathy 1,000 mg PO DAILY 03/06/20 Loratadine [Claritin 10 mg Tablet] 10 mg PO DAILY 03/06/20 Prednisone [Deltasone 5 mg Tablet] 5 mg PO DAILY 03/06/20 Torsemide [Demadex 20 mg Tablet] 20 mg PO DAILY 03/06/20 Tramadol HCl [Ultram 50 mg Tablet] 100 mg PO DAILY 03/06/20 Lidocaine [Lidoderm 5% (700 mg) Transdermal Patch] 1 patch TP DAILY #10 adh..patch 03/08/20 Lisinopril [Prinivil 5 mg Tablet] 5 mg PO DAILY #30 tablet 03/08/20 Metoprolol Succinate [Toprol Xl 50 mg Tab.sr] 50 mg PO DAILY #30 tab.sr.24h 03/08/20 Omeprazole 40 mg PO BID #30 03/08/20 History of Present Illiness History of Present Illness: JAIR JUNIOR is a 79 year old female with PMHx of CHF, HTN, GERD, osteoperosis, and chronic back pain who presented to the ED today with concerns regarding 5 week history of gradually increasing lower extremity swelling with associated redness, pain, numbness and tingling. She also notes intermitted SOB this morning, which has since resolved. Otherwise denies chest pain, palpitations, or cough. She does experience orthopnea and typically sleeps sitting up in a chair; this is unchanged from her baseline. Pain today is described as an ache and is rate 3/5 today. Patient's daughter is present on evaluation at reports attempt at wrapping legs to decrease swelling with no improvement. Patient admits to non-compliance with Torsemide as it increases her trips to the bathroom, thus aggravating her back pain. Her CHF is managed by her PCP who is in [facility] where she is lives, she is currently visiting her daughter. She is not followed by a spice fumigator, denies known history of Echo. She is scheduled for an spinal i njection with pain management on 03/10/2020 and thus has not been taking her daily baby ASA. Evaluation in the ED significant for tachycardia in the 120s and blood pressure low 100/60s. On physical exam she is found to have peripheral edema and bibasilar rales. CBC unremarkable. Chemistries suggestive of jkdik-ia-leptumm kidney injury (Bun 33, Creatinine 1.51, eGFR 33). Pro-BNP is elevated (681). Trending troponins unremarkable. TSH within normal limits. On UA there is a small amount of leukocyte esterase and elevated urine ascorbic acid. CXR with no evidence of acute intrathoracic process. EKG showed sinus tachycardia rate of 109 with evidence of LVH. Cardiology was consulted. She was treated with a single dose of lasix and was admitted to the hospitalist service for further evaluation and treatment. Physical Exam Vital Signs: Temp Pulse Resp BP Pulse Ox 98.5 F 77 17 127/65 H 100 03/08/20 12:16 03/08/20 14:00 03/08/20 12:16 03/08/20 12:16 03/08/20 12:16 Intake & Output 03/07/20 03/08/20 03/09/20 06:59 06:59 06:59 Intake Total 900 580 460 Output Total 1425 550 Balance -525 30 460 Weight 71.3 kg 68.1 kg General appearance: PRESENT: no acute distress, cooperative, obese Head exam: PRESENT: atraumatic, normocephalic Eye exam: PRESENT: conjunctiva pink, EOMI, PERRLA. ABSENT: scleral icterus Mouth exam: PRESENT: moist, tongue midline Neck exam: PRESENT: full ROM. ABSENT: JVD, lymphadenopathy, tenderness Respiratory exam: PRESENT: clear to auscultation pinky, symmetrical, unlabored. ABSENT: rales, retraction, rhonchi, tachypnea Cardiovascular exam: PRESENT: RRR, +S1, +S2. ABSENT: diastolic murmur, systolic murmur, tachycardia Pulses: PRESENT: normal radial pulses GI/Abdominal exam: PRESENT: normal bowel sounds, soft. ABSENT: ascites, distended, firm, guarding, tenderness Extremities exam: PRESENT: full ROM, pedal edema. ABSENT: clubbing, tenderness Musculoskeletal exam: PRESENT: ambulatory, full ROM. ABSENT: deformity, dislocation Neurological exam: PRESENT: alert, awake, oriented to person, oriented to place, oriented to time, oriented to situation, CN II-XII grossly intact. ABSENT: motor sensory deficit Psychiatric exam: PRESENT: appropriate affect, normal mood Skin exam: PRESENT: dry, intact, warm, other - Right femoral artery with pulse, without bolus, no surroudning erythema, dressing inplace. ABSENT: rash Results Laboratory Results: WBC 7.8 10^3/uL (4.0-10.5) 03/07/20 06:21 RBC 3.70 10^6/uL (3.72-5.28) L 03/07/20 06:21 Hgb 12.0 g/dL (12.0-15.5) D 03/07/20 06:21 Hct 34.3 % (36.0-47.0) L 03/07/20 06:21 MCV 93 fl (80-97) 03/07/20 06:21 MCH 32.4 pg (27.0-33.4) 03/07/20 06:21 MCHC 35.0 g/dL (32.0-36.0) 03/07/20 06:21 RDW 14.5 % (11.5-14.0) H 03/07/20 06:21 Plt Count 240 10^3/uL (150-450) 03/07/20 06:21 Lymph % (Auto) 19.0 % (13-45) 03/07/20 06:21 [place] % (Auto) 6.3 % (3-13) 03/07/20 06:21 Eos % (Auto) 1.6 % (0-6) 03/07/20 06:21 Baso % (Auto) 0.6 % (0-2) 03/07/20 06:21 Absolute Neuts (auto) 5.7 10^3/uL (1.7-8.2) 03/07/20 06:21 Absolute Lymphs (auto) 1.5 10^3/uL (0.5-4.7) 03/07/20 06:21 Absolute Monos (auto) 0.5 10^3/uL (0.1-1.4) 03/07/20 06:21 Absolute Eos (auto) 0.1 10^3/uL (0.0-0.6) 03/07/20 06:21 Absolute Basos (auto) 0.0 10^3/uL (0.0-0.2) 03/07/20 06:21 Seg Neutrophils % 72.5 % (42-78) 03/07/20 06:21 Sodium 138.4 mmol/L (137-145) 03/07/20 06:21 Potassium 3.8 mmol/L (3.6-5.0) 03/07/20 06:21 Chloride 101 mmol/L (98-107) 03/07/20 06:21 Carbon Dioxide 34 mmol/L (22-30) H 03/07/20 06:21 Anion Gap 3 (5-19) L 03/07/20 06:21 BUN 25 mg/dL (7-20) H 03/07/20 06:21 Creatinine 1.16 mg/dL (0.52-1.25) 03/07/20 06:21 Est GFR ( Amer) 54 (>60) L 03/07/20 06:21 Est GFR (MDRD) Non-Af 45 (>60) L 03/07/20 06:21 Glucose 99 mg/dL (75-110) 03/07/20 06:21 Hemoglobin A1c % 5.5 % (4.7-6.0) 03/07/20 06:21 Calcium 8.5 mg/dL (8.4-10.2) 03/07/20 06:21 Magnesium 2.0 mg/dL (1.6-2.3) 03/07/20 06:21 Total Bilirubin 0.6 mg/dL (0.2-1.3) 03/06/20 10:32 Direct Bilirubin 0.3 mg/dL (0.0-0.4) 03/06/20 10:32 Neonat Total Bilirubin Not Reportable 03/06/20 10:32 Neonat Direct Bilirubin Not Reportable 03/06/20 10:32 Neonat Indirect Bili Not Reportable 03/06/20 10:32 AST 23 U/L (14-36) 03/06/20 10:32 ALT 11 U/L (<35) 03/06/20 10:32 Alkaline Phosphatase 111 U/L (38-126) 03/06/20 10:32 Creatine Kinase 27 U/L (30-135) L 03/06/20 10:32 Troponin I < 0.012 ng/mL 03/06/20 14:05 NT-Pro-B Natriuret Pep 681 pg/mL (<450) H 03/06/20 10:32 Total Protein 6.3 g/dL (6.3-8.2) 03/06/20 10:32 Albumin 3.8 g/dL (3.5-5.0) 03/06/20 10:32 TSH 1.09 uIU/mL (0.47-4.68) 03/07/20 06:21 Urine Color YELLOW 03/06/20 10:32 Urine Appearance SLIGHTLY-CLOUDY 03/06/20 10:32 Urine pH 6.0 (5.0-9.0) 03/06/20 10:32 Ur Specific [place] 1.013 03/06/20 10:32 Urine Protein NEGATIVE mg/dL (NEGATIVE) 03/06/20 10:32 Urine Glucose (UA) NEGATIVE mg/dL (NEGATIVE) 03/06/20 10:32 Urine Ketones NEGATIVE mg/dL (NEGATIVE) 03/06/20 10:32 Urine Blood NEGATIVE (NEGATIVE) 03/06/20 10:32 Urine Nitrite NEGATIVE (NEGATIVE) 03/06/20 10:32 Urine Bilirubin NEGATIVE (NEGATIVE) 03/06/20 10:32 Urine Urobilinogen NEGATIVE mg/dL (<2.0) 03/06/20 10:32 Ur Leukocyte Esterase SMALL (NEGATIVE) H 03/06/20 10:32 Urine WBC (Auto) 12 /HPF 03/06/20 10:32 Urine RBC (Auto) 4 /HPF 03/06/20 10:32 Urine Bacteria (Auto) TRACE /HPF 03/06/20 10:32 Squamous Epi Cells Auto 10 /HPF 03/06/20 10:32 Urine Mucus (Auto) RARE /LPF 03/06/20 10:32 Urine Ascorbic Acid 40 (NEGATIVE) H 03/06/20 10:32 03/06/20 03/06/20 03/06/20 10:32 10:32 14:05 Troponin I < 0.012 < 0.012 NT-Pro-B Natriuret Pep 681 H Impressions: Chest X-Ray 03/06/20 10:12 IMPRESSION: No evidence of acute intrathoracic process. Evidence of prior thoracic kyphoplasty. More superior compression deformity, chronicity uncertain secondary to lack of priors. Recommend correlation with patient symptoms. Stroke Is this a Stroke Patient?: No Acute Heart Failure Is this a Heart Failure Patient?: Yes Documentation of LVEF assessment?: Yes LVEF: LVEF Greater Than 40% Anticoagulant Therapy: Yes Discharged on Evidence-Based Beta Blockers: Yes Discharged on ARNI?: No-Document Contraindications Reason(s) not discharged on ARNI: ACEI use within the prior 36 hours Discharged on ACEI?: Yes
== END 2020-03-08 16:48 | disposition home health service (06) ==
LOC: ER 09:40 → EH 16:10 → INTOOBSV 16:10 → 5 18:25 → 3S 03-07 16:01
PROVIDERS: ADMIT Hospitalist; ATTEND Hospitalist
DX: I13.0 Hypertensive heart and chronic kidney disease with heart failure and stage 1 through stage 4 chronic kidney disease, or unspecified chronic kidney disease (principal); I50.33 Acute on chronic diastolic (congestive) heart failure; N17.9 Acute kidney failure, unspecified; N18.9 Chronic kidney disease, unspecified; Z23 Encounter for immunization; R06.00 Dyspnea, unspecified; R60.0 Localized edema; R00.0 Tachycardia, unspecified; I25.10 Atherosclerotic heart disease of native coronary artery without angina pectoris; M54.9 Dorsalgia, unspecified; K21.9 Gastro-esophageal reflux disease without esophagitis; E78.5 Hyperlipidemia, unspecified; E66.9 Obesity, unspecified; M81.0 Age-related osteoporosis without current pathological fracture; Z79.82 Long term (current) use of aspirin; Z79.899 Other long term (current) drug therapy
CPT/HCPCS: 99285; 51702; 96374; 36415 ×2; 87086; 82550; 83735; 84443 ×2; 85025 ×2; 80048; 80053; 81001; 84484; 83036; 83880; 93306; 93458; 71046; 90686; 93005 ×2; 93010 ×2; 97530; 97116; 97161; G0008; C1769; C1894; J3475; A9270 ×24; J2250; J1644 ×4; J3010; J1940; J3490 ×2; J2930; S0028; 90471; J7512